=== PATIENT | male | born 1960 | race Caucasian/White ===

== ENCOUNTER → 2016-10-12 | Outpatient (CLI) | payer BC ==
[2015-12-30 20:20] VITALS: BP 117/79
[~2016-10-12] MED LIST: ACET500T33 PO; ASPI325T4 PO; BUTA1CAP29 PO; CYCL10TA2 PO; IPRA4AER IH; LEVO750T31 PO; Nicotine TD; TIOT18CA IH
== END | disposition home or self-care (01) ==
LOC: PF 11:13
PROVIDERS: ATTEND Internal Medicine Critical Care Medicine
DX: R06.02 Shortness of breath (principal)
CPT/HCPCS: 94060; 94729

== ENCOUNTER → 2016-10-13 | Outpatient (CLI) | payer BC ==
[2015-12-30 20:20] VITALS: BP 117/79
--- NOTE | 2016-10-13 11:32 | RAD ---
Indication cough. PA and lateral views of the chest were obtained. Comparison is made to an exam 06/25/2015. Note is made of the CT examination of the chest 04/09/2016. Postoperative changes are noted. Heart size and pulmonary vessels are within normal limits. A focal infiltrate is not seen. Significant pleural fluid is not present. There are some degenerative changes in the thoracic spine. IMPRESSION:: No acute or focal process is seen in the chest
== END | disposition home or self-care (01) ==
LOC: RAD 11:04
PROVIDERS: ATTEND Internal Medicine Critical Care Medicine
DX: R05 Cough (principal)
CPT/HCPCS: 71020

== ENCOUNTER 2017-02-26 21:53 | Inpatient (IN) | payer BC ==
[~2017-02-26] VITALS: Ht 188 cm; Wt 84.9 kg
[~2017-02-26 21:53] MED LIST changes: -ASPI325T4 PO; +ASPI325T8 PO
[2017-02-26 22:15] LABS: BASO # 0.1 x10^3/uL (0.0-0.2); BASO % 1 % (0-3); EOS % 4 % (0-3); HEMATOCRIT 45.7 % (39.0-53.0); HEMOGLOBIN 15.3 g/dL (13.0-17.5); LYMPH # 3.4 x10^3/uL (1.0-4.8); LYMPH % 34 % (24-48); MEAN CORPUSCULAR HEMOGLOBIN 31 pg (25-35); MEAN CORPUSCULAR HGB CONC 33 g/dL (31-37); MEAN CORPUSCULAR VOLUME 92 fL (79-100); MONO % 7 % (0-9); NEUT % 54 % (31-73); PLATELET COUNT 348 x10^3/uL (140-400); RED BLOOD COUNT 4.97 x10^6/uL (4.30-5.70); RED CELL DISTRIBUTION WIDTH 13.7 % (11.5-14.5); WHITE BLOOD COUNT 10.2 x10^3/uL (4.0-11.0)
[2017-02-26] MEDS ORDERED: ONDANSETRON PF 4 MG/2 ML VIAL. IV ONE (22:15)
[2017-02-26] MEDS ORDERED: IV NORMAL SALINE 1000ML BAG 1,000 ML IV SCH ×2 (22:15→23:45)
[2017-02-26] MEDS ORDERED: NITROGLYCERIN SUBLINGUAL 0.4 MG BOTTLE OF 25. SL PRN (22:15)
--- NOTE | 2017-02-26 22:24 | PHYS DOC ---
Past Medical History Past Medical History: CAD, COPD Past Surgical History: Coronary Bypass Surgery Alcohol Use: None Drug Use: None Adult General Chief Complaint Chief Complaint: CHEST PAIN HPI HPI Patient is a 56 year old male who presents with complaint of chest pain. Patient states his symptoms started suddenly tonight approximately 1 hour prior to arrival. Patient states that he started having severe substernal chest pain which he describes as pressure. Patient states "it feels like someone sitting on my chest." Patient has history of coronary artery disease status post bypass surgery done in 2006. 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 Patient states he took a full strength aspirin upon onset of symptoms but has not taken anything else for his symptoms. On my evaluation, patient rates his pain as 9 out of 10. Patient states that he has associated nausea and shortness of breath with symptoms. Patient denies fevers. Patient states that the pain radiates towards his left shoulder. Review of Systems Review of Systems Constitutional: Denies fever or chills [] Eyes: Denies change in visual acuity, redness, or eye pain [] HENT: Denies nasal congestion or sore throat [] Respiratory: Shortness of breath[] Cardiovascular: Chest pain[] GI: Nausea, denies abdominal pain, vomiting, bloody stools or diarrhea [] : Denies dysuria or hematuria [] Musculoskeletal: Denies back pain or joint pain [] Integument: Denies rash or skin lesions [] Neurologic: Denies headache, focal weakness or sensory changes [] Current Medications Current Medications Current Medications Medications (Trade) Dose Ordered Sig/Camille Start Time Stop Time Status Last Admin Dose Admin Fentanyl Citrate (Fentanyl 2ml Vial) 50 mcg PRN Q15MIN PRN 02/26/17 22:15 02/27/17 22:14 Heparin Sodium (Porcine) (Heparin Sodium) 2,200 unit PRN Q6HRS PRN 02/26/17 22:30 Heparin Sodium/ Dextrose 500 ml @ 0 mls/hr CONT PRN 02/26/17 22:30 Nitroglycerin (Nitrostat) 0.4 mg PRN Q5MIN PRN 02/26/17 22:15 02/27/17 22:14 Ondansetron HCl (Zofran) 4 mg 1X ONCE 02/26/17 22:15 02/26/17 22:16 DC Sodium Chloride 1,000 ml @ 100 mls/hr Q10H 02/26/17 22:15 02/27/17 08:14 Allergies Allergies Allergies Coded Allergies Type Severity Reaction Last Updated Verified No Known Drug Allergies 02/21/15 No Physical Exam Physical Exam Constitutional: Alert, afebrile, appears in moderate to severe discomfort. [] HENT: Normocephalic, atraumatic, bilateral external ears normal, oropharynx moist, no oral exudates, nose normal. [] Eyes: PERRLA, EOMI, conjunctiva normal, no discharge. [] Neck: Normal range of motion, no tenderness, supple, no stridor. [] Cardiovascular:Heart rate regular rhythm, no murmur [] Lungs & Thorax: Mildly restricted air movement bilaterally, no wheezes, no rales [] Abdomen: Bowel sounds normal, soft, no tenderness, no masses, no pulsatile masses. [] Skin: Warm, dry, no erythema, no rash. [] Back: No tenderness, no CVA tenderness. [] Extremities: No tenderness, no cyanosis, no clubbing, ROM intact, no edema. [] Neurologic: Alert and oriented X 3, normal motor function, normal sensory function, no focal deficits noted. [] Current Patient Data Vital Signs Vital Signs Date Time Temp Pulse Resp B/P (MAP) Pulse Ox O2 Delivery O2 Flow Rate FiO2 02/26/17 21:55 98.0 86 22 137/74 (95) 94 Room Air 98.0 Lab Values Laboratory Tests Test 02/26/17 22:00 02/26/17 22:04 White Blood Count 10.2 x10^3/uL (4.0-11.0) Red Blood Count 4.97 x10^6/uL (4.30-5.70) Hemoglobin 15.3 g/dL (13.0-17.5) Hematocrit 45.7 % (39.0-53.0) Mean Corpuscular Volume 92 fL (79-100) Mean Corpuscular Hemoglobin 31 pg (25-35) Mean Corpuscular Hemoglobin Concent 33 g/dL (31-37) Red Cell Distribution Width 13.7 % (11.5-14.5) Platelet Count 348 x10^3/uL (140-400) Neutrophils (%) (Auto) 54 % (31-73) Lymphocytes (%) (Auto) 34 % (24-48) Monocytes (%) (Auto) 7 % (0-9) Eosinophils (%) (Auto) 4 % (0-3) H Basophils (%) (Auto) 1 % (0-3) Neutrophils # (Auto) 5.5 x10^3uL (1.8-7.7) Lymphocytes # (Auto) 3.4 x10^3/uL (1.0-4.8) Monocytes # (Auto) 0.7 x10^3/uL (0.0-1.1) Eosinophils # (Auto) 0.4 x10^3/uL (0.0-0.7) Basophils # (Auto) 0.1 x10^3/uL (0.0-0.2) Sodium Level 141 mmol/L (136-145) Potassium Level 3.6 mmol/L (3.5-5.1) Chloride Level 104 mmol/L (98-107) Carbon Dioxide Level 25 mmol/L (21-32) Anion Gap 12 (6-14) Blood Urea Nitrogen 13 mg/dL (8-26) Creatinine 1.2 mg/dL (0.7-1.3) Estimated GFR (Cockcroft-Gault) 62.2 BUN/Creatinine Ratio 11 (6-20) Glucose Level 102 mg/dL (70-99) H Calcium Level 9.5 mg/dL (8.5-10.1) Magnesium Level 2.2 mg/dL (1.8-2.4) Total Bilirubin 0.2 mg/dL (0.2-1.0) Aspartate Amino Transferase (AST) 25 U/L (15-37) Alanine Aminotransferase (ALT) 30 U/L (16-63) Alkaline Phosphatase 89 U/L (46-116) Creatine Kinase 238 U/L (39-308) Creatine Kinase MB (Mass) 14.7 ng/mL (0.0-3.6) H Creatine Kinase MB Relative Index 6.2 % (0-4) H Troponin I Quantitative 2.026 ng/mL (0.000-0.055) LJ-Uzh-A-Type Natriuretic Peptide 167 pg/mL (0-124) H Total Protein 6.7 g/dL (6.4-8.2) Albumin 3.6 g/dL (3.4-5.0) Albumin/Globulin Ratio 1.2 (1.0-1.7) POC Troponin I 0.88 ng/ml (<0.08) Laboratory Tests 02/26/17 22:00 Laboratory Tests 02/26/17 22:00 EKG EKG Interpreted by me: Heart rate 85, sinus rhythm, PVC present, left axis deviation , no acute ST elevations or depressions[] Radiology/Procedures Radiology/Procedures One view AP chest x-ray interpreted by me: No infiltrate, no effusions, normal cardiac silhouette[] Course & Med Decision Making Course & Med Decision Making Pertinent Labs and Imaging studies reviewed. (See chart for details) HEART score is 6. Patient's initial troponin significantly elevated. Findings concerning for NSTEMI. Patient started on IV heparin per cardiovascular protocol. Patient was not given aspirin as he took a full strength aspirin upon onset of symptoms. Spoke with Dr. Arreola of cardiology who agreed with initial measures and will follow with patient in hospital. I spoke with Dr. Shine who accepted care patient in hospital. Critical care time excluding procedures: 30 minutes Dragon Disclaimer Dragon Disclaimer This electronic medical record was generated, in whole or in part, using a voice recognition dictation system. Departure Departure Impression: Primary Impression: NSTEMI (non-ST elevated myocardial infarction) Disposition: ADMITTED INPATIENT Admitting Physician: Chris Shine Condition: GUARDED Referrals: PATIENCE BYERS MD (PCP) AVEL HINOJOSA MD Feb 26, 2017 22:24
[2017-02-26] MEDS ORDERED: HEPARIN for IV BOLUS 10,000 UNIT/10 ML VIAL. IV ONE (22:30)
[2017-02-26] MEDS ORDERED: HEPARIN for IV BOLUS 10,000 UNIT/10 ML VIAL. IV PRN (22:30)
[2017-02-26 22:42] LABS: ALBUMIN 3.6 g/dL (3.4-5.0); ALBUMIN/GLOBULIN RATIO 1.2 (1.0-1.7); CALCIUM 9.5 mg/dL (8.5-10.1); CREATININE 1.2 mg/dL (0.7-1.3); GFR 62.2; POTASSIUM 3.6 mmol/L (3.5-5.1); TOTAL BILIRUBIN 0.2 mg/dL (0.2-1.0); TOTAL PROTEIN 6.7 g/dL (6.4-8.2)
[2017-02-26 22:44] LABS: CKMB MASS 14.7 ng/mL (0.0-3.6)
[2017-02-26] MEDS: HEPARIN 25,000UTS/500ML PREMIX 500 ML IV PRN (22:57)
[2017-02-26 23:30] VITALS: BP 123/70
[2017-02-26] MEDS ORDERED: ONDANSETRON PF 4 MG/2 ML VIAL. IV PRN (23:45)
[2017-02-26] MEDS ORDERED: fentaNYL PF VIAL 100 MCG/2 ML VIAL IV PRN (23:45)
[2017-02-26] MEDS ORDERED: ACETAMINOPHEN 325 MG TABLET. PO PRN (23:45)
[2017-02-27] VITALS (21 sets, daily range): BP systolic 108–149; BP diastolic 73–91
[2017-02-27] MEDS: fentaNYL PF VIAL 100 MCG/2 ML VIAL IV PRN ×2 (00:10→03:59)
[2017-02-27] MEDS ORDERED: ATOR10TA PO (02:38)
[2017-02-27] MEDS ORDERED: PROAIR HFA8.5 GM INH (02:38)
[2017-02-27] MEDS ORDERED: BUDE10.2 IH (02:38)
[2017-02-27 04:54] LABS: BASO # 0.1 x10^3/uL (0.0-0.2); BASO % 1 % (0-3); EOS % 5 % (0-3); HEMATOCRIT 42.5 % (39.0-53.0); HEMOGLOBIN 14.4 g/dL (13.0-17.5); LYMPH # 3.1 x10^3/uL (1.0-4.8); LYMPH % 30 % (24-48); MEAN CORPUSCULAR HEMOGLOBIN 31 pg (25-35); MEAN CORPUSCULAR HGB CONC 34 g/dL (31-37); MEAN CORPUSCULAR VOLUME 92 fL (79-100); MONO % 6 % (0-9); NEUT % 58 % (31-73); PLATELET COUNT 300 x10^3/uL (140-400); RED CELL DISTRIBUTION WIDTH 14.1 % (11.5-14.5); WHITE BLOOD COUNT 10.5 x10^3/uL (4.0-11.0)
[2017-02-27 05:07] LABS: CALCIUM 8.9 mg/dL (8.5-10.1); GFR 76.7; POTASSIUM 3.8 mmol/L (3.5-5.1)
[2017-02-27 06:06] LABS: CHOLESTEROL/HDL RATIO 5.2
[2017-02-27] MEDS ORDERED: NITROGLYCERIN PREMIX 250 ML IV ONE (07:15)
[2017-02-27] MEDS ORDERED: CLOPIDOGREL BISULFATE 75 MG TABLET PO ONE (07:15)
--- NOTE | 2017-02-27 07:39 | CONS ---
DATE OF CONSULTATION: 02/27/2017 REASON FOR CONSULTATION: Non-STEMI. HISTORY OF PRESENT ILLNESS: The patient is a pleasant 56-year-old male with past medical history as noted below, who presents to the hospital in the setting of chest pain. He was apparently in his usual state of health and at baseline is able to ambulate and do activities around the house without any significant limitations. He began to notice some chest pain yesterday evening, which prompted arrival to the ER. His initial troponin was elevated at 2 and he was started on appropriate therapy including aspirin and heparin drip. Since admission to the hospital, he has had intermittent chest pain, requiring nitroglycerin therapy at times. He has continued to have a minimally elevated troponin. PAST MEDICAL HISTORY: 1. Coronary artery disease, status post 5-vessel bypass several years ago. 2. Tobacco abuse. 3. COPD. SOCIAL HISTORY: The patient reports 2-pack per day history of tobacco abuse. Denies any alcohol or illicit drug use. 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 FAMILY HISTORY: Noncontributory. ALLERGIES: No known drug allergies. CURRENT CARDIOVASCULAR MEDICATIONS: Include: 1. Aspirin. 2. Plavix. 3. Heparin drip. 4. Atorvastatin. REVIEW OF SYSTEMS: Negative for 10 out of 14 systems reviewed, unless otherwise mentioned above in HPI. PHYSICAL EXAMINATION: VITAL SIGNS: Afebrile, heart rate 74, respiratory rate 20, blood pressure 123/87, 94% on room air. GENERAL: He is alert and oriented, in no acute distress. HEAD AND NECK: Unremarkable. HEART: Regular rate and rhythm without any significant murmurs, rubs or gallops. LUNGS: Notable for bilateral rhonchi. ABDOMEN: Soft, nontender, nondistended. EXTREMITIES: No clubbing, cyanosis or edema. 2+ radial and dorsalis pedis pulses. NEUROLOGIC: No focal deficits. MUSCULOSKELETAL: No trauma. PSYCHIATRIC: Normal mood and affect. DIAGNOSTIC TESTING: CBC is within normal limits. Basic metabolic within normal limits. Troponin elevated at 2.095. LDL elevated at 145, HDL 40. Chest x-ray is notable for bilateral mild pulmonary vascular congestion. EKG is unavailable for review at this time, but based upon ER notes, it appears to represent sinus rhythm without any significant ST or T-wave changes. IMPRESSION: Non-ST elevation myocardial infarction in a patient with prior history of coronary artery disease and tobacco abuse. RECOMMENDATIONS: We will plan for coronary angiogram in light of his chest pain and elevated biomarkers. Initiate the patient on Plavix. Blood pressure and heart rate well controlled at this time. Thank you for this consultation. LUCIO CHEN MD DR: PIERRE/augustin JOB#: [id number] / [id number]
[2017-02-27] MEDS: ASPIRIN ENTERIC COATED 81 MG TABLET.DR. PO SCH (07:44)
[2017-02-27] MEDS: ATORVASTATIN CALCIUM 40 MG TABLET. PO SCH ×2 (07:44→21:03)
--- NOTE | 2017-02-27 10:38 | RAD ---
Portable chest, 02/26/2017: History: Left-sided chest pain Comparison is made to a study from 10/13/2016. There has been a previous median sternotomy. The heart size is normal. There are mild scattered parenchymal scars. The depth of inspiration is not as good as on the prior exam. No acute infiltrate is seen. There is no evidence of pleural fluid or pneumothorax. IMPRESSION: No acute cardiopulmonary abnormality is detected.
--- NOTE | 2017-02-27 12:24 | EKG ---
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
--- NOTE | 2017-02-27 12:47 | EKG ---
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
--- NOTE | 2017-02-27 14:26 | PDOC1 ---
History and Physical Date of Admission Date of Admission 02/26/17 Identification/Chief Complaint Chief Complaint chest pain Problems: Source Source: Chart review, Patient History of Present Illness History of Present Illness HPI HPI Patient is a 56 year old male who presents with complaint of chest pain yesterday. pt got CABG x5 2006. he was doing ok till yesterday, when he was sitting, he felt substernal chest pain, heavy, 9/10, with N/V, sob, no diaphoresis, radiating to left shoulder. ER Troponin high. denies fever, chills, cough, diarrhea. still smoking, compliant with meds. requries both heparin and nitro drip overnight, now still chest pain 12/30 Past Medical History Cardiovascular: CAD, HTN Pulmonary: COPD Past Surgical History Past Surgical History: CABG Family History Family History: Hypertension Social History Smoke: <1 pack per day ALCOHOL: social Drugs: None Current Problem List Problem List Problems Medical Problems: (1) NSTEMI (non-ST elevated myocardial infarction) Status: Acute Current Medications Current Medications Current Medications Medications (Trade) Dose Ordered Sig/Camille Start Time Stop Time Status Last Admin Dose Admin Acetaminophen (Tylenol) 650 mg PRN Q4HRS PRN 02/26/17 23:45 02/27/17 23:44 02/27/17 09:38 650 MG Aspirin (Ecotrin) 81 mg DAILYWBKFT 02/27/17 08:00 02/27/17 07:44 81 MG Atorvastatin Calcium (Lipitor) 40 mg QHS 02/27/17 07:15 02/27/17 07:44 40 MG Clopidogrel Bisulfate (Plavix) 75 mg DAILYWBKFT 02/28/17 08:00 Fentanyl Citrate (Fentanyl 2ml Vial) 50 mcg PRN Q2HR PRN 02/26/17 23:45 02/27/17 23:44 Heparin Sodium (Porcine) (Heparin Sodium) 2,200 unit PRN Q6HRS PRN 02/26/17 22:30 02/27/17 12:59 2,200 UNIT Heparin Sodium/ Dextrose 500 ml @ 0 mls/hr CONT PRN 02/26/17 22:30 02/26/17 22:57 0 MLS/HR Nitroglycerin (Nitrostat) 0.4 mg PRN Q5MIN PRN 02/26/17 22:15 02/27/17 22:14 02/26/17 23:02 0.4 MG Nitroglycerin/ Dextrose 250 ml @ 0 mls/hr 1X ONCE 02/27/17 07:15 02/27/17 07:16 DC 02/27/17 07:45 0 MLS/HR Ondansetron HCl (Zofran) 4 mg PRN Q8HRS PRN 02/26/17 23:45 02/27/17 23:44 Sodium Chloride 1,000 ml @ 100 mls/hr Q10H 02/26/17 23:45 02/26/17 23:59 DC Allergies Allergies Allergies Coded Allergies Type Severity Reaction Last Updated Verified No Known Drug Allergies 02/21/15 No ROS Review of System CONSTITUTIONAL: No fever or chills EYES: No recent changes SKIN: No rash or itching CARDIOVASCULAR: No chest pain, syncope, palpitations, or edema RESPIRATORY: No SOB or cough GASTROINTESTINAL: No nausea, vomiting or abdominal pain NEUROLOGICAL: No headaches or weakness ENDOCRINE: No cold or heat intolerance GENITOURINARY: No urgency or frequency of urination MUSCULOSKELETAL: No back pain or joint pain LYMPHATICS: No enlarged lymph nodes PSYCHIATRIC: No anxiety or depression Physical Exam Physical Exam GEN.: No apparent distress. Alert and oriented. HEENT: Head is normocephalic, atraumatic NECK: Supple. LUNGS: Clear to auscultation. middle chest wall tenderness HEART: RRR, S1, S2 present. Peripheral pulses intact ABDOMEN: Soft, nontender. Positive bowel sounds. EXTREMITIES: Without any cyanosis. NEUROLOGIC: Normal speech, normal tone PSYCHIATRIC: Normal affect, normal mood. SKIN: No ulcerations Vitals Vitals Vital Signs Date Time Temp Pulse Resp B/P (MAP) Pulse Ox O2 Delivery O2 Flow Rate FiO2 02/27/17 10:56 85 18 131/85 (100) 94 Room Air 02/27/17 07:00 98.0 98.0 Labs Labs Laboratory Tests Test 02/26/17 22:00 02/26/17 22:04 02/27/17 04:30 02/27/17 05:58 White Blood Count 10.2 x10^3/uL (4.0-11.0) 10.5 x10^3/uL (4.0-11.0) Red Blood Count 4.97 x10^6/uL (4.30-5.70) 4.60 x10^6/uL (4.30-5.70) Hemoglobin 15.3 g/dL (13.0-17.5) 14.4 g/dL (13.0-17.5) Hematocrit 45.7 % (39.0-53.0) 42.5 % (39.0-53.0) Mean Corpuscular Volume 92 fL (79-100) 92 fL (79-100) Mean Corpuscular Hemoglobin 31 pg (25-35) 31 pg (25-35) Mean Corpuscular Hemoglobin Concent 33 g/dL (31-37) 34 g/dL (31-37) Red Cell Distribution Width 13.7 % (11.5-14.5) 14.1 % (11.5-14.5) Platelet Count 348 x10^3/uL (140-400) 300 x10^3/uL (140-400) Neutrophils (%) (Auto) 54 % (31-73) 58 % (31-73) Lymphocytes (%) (Auto) 34 % (24-48) 30 % (24-48) Monocytes (%) (Auto) 7 % (0-9) 6 % (0-9) Eosinophils (%) (Auto) 4 % (0-3) 5 % (0-3) Basophils (%) (Auto) 1 % (0-3) 1 % (0-3) Neutrophils # (Auto) 5.5 x10^3uL (1.8-7.7) 6.1 x10^3uL (1.8-7.7) Lymphocytes # (Auto) 3.4 x10^3/uL (1.0-4.8) 3.1 x10^3/uL (1.0-4.8) Monocytes # (Auto) 0.7 x10^3/uL (0.0-1.1) 0.6 x10^3/uL (0.0-1.1) Eosinophils # (Auto) 0.4 x10^3/uL (0.0-0.7) 0.5 x10^3/uL (0.0-0.7) Basophils # (Auto) 0.1 x10^3/uL (0.0-0.2) 0.1 x10^3/uL (0.0-0.2) Sodium Level 141 mmol/L (136-145) 140 mmol/L (136-145) Potassium Level 3.6 mmol/L (3.5-5.1) 3.8 mmol/L (3.5-5.1) Chloride Level 104 mmol/L (98-107) 106 mmol/L (98-107) Carbon Dioxide Level 25 mmol/L (21-32) 24 mmol/L (21-32) Anion Gap 12 (6-14) 10 (6-14) Blood Urea Nitrogen 13 mg/dL (8-26) 10 mg/dL (8-26) Creatinine 1.2 mg/dL (0.7-1.3) 1.0 mg/dL (0.7-1.3) Estimated GFR (Cockcroft-Gault) 62.2 76.7 BUN/Creatinine Ratio 11 (6-20) Glucose Level 102 mg/dL (70-99) 91 mg/dL (70-99) Calcium Level 9.5 mg/dL (8.5-10.1) 8.9 mg/dL (8.5-10.1) Magnesium Level 2.2 mg/dL (1.8-2.4) Total Bilirubin 0.2 mg/dL (0.2-1.0) Aspartate Amino Transf (AST/SGOT) 25 U/L (15-37) Alanine Aminotransferase (ALT/SGPT) 30 U/L (16-63) Alkaline Phosphatase 89 U/L (46-116) Creatine Kinase 238 U/L (39-308) Creatine Kinase MB (Mass) 14.7 ng/mL (0.0-3.6) Creatine Kinase MB Relative Index 6.2 % (0-4) Troponin I Quantitative 2.026 ng/mL (0.000-0.055) 2.095 ng/mL (0.000-0.055) SJ-Hmg-U-Type Natriuretic Peptide 167 pg/mL (0-124) Total Protein 6.7 g/dL (6.4-8.2) Albumin 3.6 g/dL (3.4-5.0) Albumin/Globulin Ratio 1.2 (1.0-1.7) Bedside Troponin I 0.88 ng/ml (<0.08) Triglycerides Level 119 mg/dL (0-150) Cholesterol Level 209 mg/dL (0-200) LDL Cholesterol, Calculated 145 mg/dL (0-100) VLDL Cholesterol, Calculated 24 mg/dL (0-40) Non-HDL Cholesterol Calculated 169 mg/dL (0-129) HDL Cholesterol 40 mg/dL (40-60) Cholesterol/HDL Ratio 5.2 Heparin Anti-Xa Act, Unfractionated 0.32 IU/mL (0.30-0.70) Test 02/27/17 11:45 Heparin Anti-Xa Act, Unfractionated 0.16 IU/mL (0.30-0.70) Troponin I Quantitative 3.725 ng/mL (0.000-0.055) Laboratory Tests Test 02/26/17 22:00 02/26/17 22:04 02/27/17 04:30 02/27/17 05:58 White Blood Count 10.2 x10^3/uL (4.0-11.0) 10.5 x10^3/uL (4.0-11.0) Red Blood Count 4.97 x10^6/uL (4.30-5.70) 4.60 x10^6/uL (4.30-5.70) Hemoglobin 15.3 g/dL (13.0-17.5) 14.4 g/dL (13.0-17.5) Hematocrit 45.7 % (39.0-53.0) 42.5 % (39.0-53.0) Mean Corpuscular Volume 92 fL (79-100) 92 fL (79-100) Mean Corpuscular Hemoglobin 31 pg (25-35) 31 pg (25-35) Mean Corpuscular Hemoglobin Concent 33 g/dL (31-37) 34 g/dL (31-37) Red Cell Distribution Width 13.7 % (11.5-14.5) 14.1 % (11.5-14.5) Platelet Count 348 x10^3/uL (140-400) 300 x10^3/uL (140-400) Neutrophils (%) (Auto) 54 % (31-73) 58 % (31-73) Lymphocytes (%) (Auto) 34 % (24-48) 30 % (24-48) Monocytes (%) (Auto) 7 % (0-9) 6 % (0-9) Eosinophils (%) (Auto) 4 % (0-3) 5 % (0-3) Basophils (%) (Auto) 1 % (0-3) 1 % (0-3) Neutrophils # (Auto) 5.5 x10^3uL (1.8-7.7) 6.1 x10^3uL (1.8-7.7) Lymphocytes # (Auto) 3.4 x10^3/uL (1.0-4.8) 3.1 x10^3/uL (1.0-4.8) Monocytes # (Auto) 0.7 x10^3/uL (0.0-1.1) 0.6 x10^3/uL (0.0-1.1) Eosinophils # (Auto) 0.4 x10^3/uL (0.0-0.7) 0.5 x10^3/uL (0.0-0.7) Basophils # (Auto) 0.1 x10^3/uL (0.0-0.2) 0.1 x10^3/uL (0.0-0.2) Sodium Level 141 mmol/L (136-145) 140 mmol/L (136-145) Potassium Level 3.6 mmol/L (3.5-5.1) 3.8 mmol/L (3.5-5.1) Chloride Level 104 mmol/L (98-107) 106 mmol/L (98-107) Carbon Dioxide Level 25 mmol/L (21-32) 24 mmol/L (21-32) Anion Gap 12 (6-14) 10 (6-14) Blood Urea Nitrogen 13 mg/dL (8-26) 10 mg/dL (8-26) Creatinine 1.2 mg/dL (0.7-1.3) 1.0 mg/dL (0.7-1.3) Estimated GFR (Cockcroft-Gault) 62.2 76.7 BUN/Creatinine Ratio 11 (6-20) Glucose Level 102 mg/dL (70-99) 91 mg/dL (70-99) Calcium Level 9.5 mg/dL (8.5-10.1) 8.9 mg/dL (8.5-10.1) Magnesium Level 2.2 mg/dL (1.8-2.4) Total Bilirubin 0.2 mg/dL (0.2-1.0) Aspartate Amino Transf (AST/SGOT) 25 U/L (15-37) Alanine Aminotransferase (ALT/SGPT) 30 U/L (16-63) Alkaline Phosphatase 89 U/L (46-116) Creatine Kinase 238 U/L (39-308) Creatine Kinase MB (Mass) 14.7 ng/mL (0.0-3.6) Creatine Kinase MB Relative Index 6.2 % (0-4) Troponin I Quantitative 2.026 ng/mL (0.000-0.055) 2.095 ng/mL (0.000-0.055) OJ-Qhz-P-Type Natriuretic Peptide 167 pg/mL (0-124) Total Protein 6.7 g/dL (6.4-8.2) Albumin 3.6 g/dL (3.4-5.0) Albumin/Globulin Ratio 1.2 (1.0-1.7) Bedside Troponin I 0.88 ng/ml (<0.08) Triglycerides Level 119 mg/dL (0-150) Cholesterol Level 209 mg/dL (0-200) LDL Cholesterol, Calculated 145 mg/dL (0-100) VLDL Cholesterol, Calculated 24 mg/dL (0-40) Non-HDL Cholesterol Calculated 169 mg/dL (0-129) HDL Cholesterol 40 mg/dL (40-60) Cholesterol/HDL Ratio 5.2 Heparin Anti-Xa Act, Unfractionated 0.32 IU/mL (0.30-0.70) Test 02/27/17 11:45 Heparin Anti-Xa Act, Unfractionated 0.16 IU/mL (0.30-0.70) Troponin I Quantitative 3.725 ng/mL (0.000-0.055) VTE Prophylaxis Ordered VTE Prophylaxis Devices: No VTE Pharmacological Prophylaxi: No Assessment/Plan Assessment/Plan NSTEMI h/o CAD post CABG COPD TOBAccoism HLD plan: fu with card echo today high HLD, increase lipitor cont asa, plavix cath tmr on heparin drip, nitro drip for chest pain cycle CE admit 2 nights CYNDIE ORDAZ MD Feb 27, 2017 14:25
[2017-02-27] MEDS ORDERED: MORPHINE SULFATE 2 MG/ML DISP.SYRIN. IV PRN (14:30)
[2017-02-27] MEDS ORDERED: hydrALAZINE 20 MG/ML VIAL. IVP PRN (14:30)
[2017-02-27] MEDS ORDERED: DOCUSATE SODIUM 100 MG CAPSULE. PO PRN (14:30)
[2017-02-27] MEDS ORDERED: NON FORMULARY ITEM (Albuterol Sulfate (Proair Hfa Inhaler) 2 PUFF) INH PRN (14:30)
[2017-02-27] MEDS ORDERED: ONDANSETRON PF 4 MG/2 ML VIAL. IV PRN (14:30)
[2017-02-27] MEDS ORDERED: CYCLOBENZAPRINE 10 MG TABLET. PO PRN (14:30)
[2017-02-27] MEDS ORDERED: ALBUTEROL SULFATE 2.5 MG/3 ML NEBU. NEB PRN (15:00)
[2017-02-27] MEDS ORDERED: BUTALB/APAP/CAFEIN 50/325/40MG TABLET. PO PRN (15:00)
[2017-02-27] MEDS ORDERED: NICOTINE 21MG PATCH. TD PRN (15:00)
[2017-02-27] MEDS: traMADol 50 MG TABLET PO PRN ×2 (15:49→23:49)
[2017-02-27] MEDS ORDERED: NON FORMULARY ITEM (Ipratropium/Albuterol Sulfate (Combivent Respimat Inhal) 2 INH) IH SCH (17:00)
[2017-02-27] MEDS: guaiFENesin/CODEINE 100mg/10mg 5 ML LIQUID PO PRN (17:02)
[2017-02-27] MEDS: HEPARIN 25,000UTS/500ML PREMIX 500 ML IV PRN (19:25)
[2017-02-27] MEDS: IPRATRPIUM/ALBUTEROL 0.5/2.5MG 3 ML NEBU. NEB SCH (19:28)
[2017-02-27] MEDS: BUDESONIDE 0.5 MG/2 ML NEBU. NEB SCH (19:28)
[2017-02-27] MEDS ORDERED: NON FORMULARY ITEM (Budesonide/Formoterol Fumarate (Symbicort 160-4.5 Mcg Inhaler) 2 PUFF) IH SCH (21:00)
[2017-02-28] VITALS (14 sets, daily range): BP systolic 109–142; BP diastolic 74–96
[2017-02-28] MEDS: ACETAMINOPHEN 325 MG TABLET. PO PRN ×2 (03:46→19:25)
[2017-02-28] MEDS: guaiFENesin/CODEINE 100mg/10mg 5 ML LIQUID PO PRN ×2 (03:46→19:24)
[2017-02-28 04:42] LABS: BASO # 0.1 x10^3/uL (0.0-0.2); BASO % 1 % (0-3); EOS % 1 % (0-3); HEMATOCRIT 45.3 % (39.0-53.0); LYMPH # 2.7 x10^3/uL (1.0-4.8); LYMPH % 24 % (24-48); MEAN CORPUSCULAR HEMOGLOBIN 30 pg (25-35); MEAN CORPUSCULAR HGB CONC 33 g/dL (31-37); MEAN CORPUSCULAR VOLUME 92 fL (79-100); MONO % 8 % (0-9); NEUT % 65 % (31-73); PLATELET COUNT 320 x10^3/uL (140-400); RED BLOOD COUNT 4.95 x10^6/uL (4.30-5.70); RED CELL DISTRIBUTION WIDTH 13.7 % (11.5-14.5); WHITE BLOOD COUNT 11.1 x10^3/uL (4.0-11.0)
[2017-02-28 05:17] LABS: CALCIUM 9.6 mg/dL (8.5-10.1); GFR 76.7; POTASSIUM 3.7 mmol/L (3.5-5.1)
[2017-02-28] MEDS: BUDESONIDE 0.5 MG/2 ML NEBU. NEB SCH ×2 (08:03→20:14)
[2017-02-28] MEDS: IPRATRPIUM/ALBUTEROL 0.5/2.5MG 3 ML NEBU. NEB SCH ×4 (08:03→20:14)
[2017-02-28] MEDS: CLOPIDOGREL BISULFATE 75 MG TABLET PO SCH (08:31)
[2017-02-28] MEDS: ASPIRIN ENTERIC COATED 81 MG TABLET.DR. PO SCH (08:31)
[2017-02-28] MEDS ORDERED: ANTI-COAG MONITOR BY PHARMACY. MC PRN (08:45)
[2017-02-28] MEDS ORDERED: NON FORMULARY ITEM (Tiotropium Bromide (Spiriva) 2 INH) IH SCH (09:00)
[2017-02-28] MEDS ORDERED: LIDOCAINE 2% 20 ML VIAL. ONE (11:20)
[2017-02-28] MEDS ORDERED: fentaNYL PF VIAL 100 MCG/2 ML VIAL ONE (11:21)
[2017-02-28] MEDS ORDERED: MIDAZOLAM HCL/PF 2 MG/2 ML VIAL. ONE (11:21)
[2017-02-28] MEDS ORDERED: IOHEXOL 300 MG/ML 100ML VIAL. IART ONE (11:45)
[2017-02-28] MEDS ORDERED: fentaNYL PF VIAL 100 MCG/2 ML VIAL IV ONE (11:45)
[2017-02-28] MEDS ORDERED: MIDAZOLAM HCL/PF 2 MG/2 ML VIAL. IV ONE (11:45)
[2017-02-28] MEDS ORDERED: LIDOCAINE 2% 20 ML VIAL. IJ ONE (11:45)
[2017-02-28] MEDS ORDERED: HEPARIN for IV BOLUS 10,000 UNIT/10 ML VIAL. ONE (12:01)
[2017-02-28] MEDS ORDERED: HEPARIN for IV BOLUS 10,000 UNIT/10 ML VIAL. IV ONE (12:15)
--- NOTE | 2017-02-28 13:04 | CARD ---
APPROVED REPORT EXAM: LIMITED Two-dimensional echocardiogram. Other Information Quality : Average Rhythm : NSR INDICATION Non STEMI 2D DIMENSIONS IVSd1.5 (0.7-1.1cm)LVDd4.8 (3.9-5.9cm) PWd1.5 (0.7-1.1cm)LVDs3.7 (2.5-4.0cm) FS (%) 21.5 %SV46.2 ml LVEF(%)45.6 (>50%) LEFT VENTRICLE The left ventricle is normal size. There is mild concentric left ventricular hypertrophy. Left ventri ken systolic function is low normal. The Ejection Fraction is 50%. Septal motion consistent with post -operative state. GREAT VESSELS Not assessed PERICARDIAL EFFUSION There is no evidence of significant pericardial effusion. Critical Notification Critical Value: No <Conclusion> Left ventricle systolic function is low normal. The Ejection Fraction is 50%. Septal motion consistent with post-operative state. Limited echo for LV function only.
--- NOTE | 2017-02-28 15:04 | PDOC ---
PROGRESS NOTES Chief Complaint Chief Complaint NSTEMI h/o CAD post CABG COPD TOBAccoism HLD plan: fu with card echo done high HLD, increase lipitor cont asa, plavix cath today on heparin drip, nitro drip for chest pain cycle CE, high duoneb, albuterol prn History of Present Illness History of Present Illness ROS: NO fever, chills, sob or chest pain some cough with sob Vitals Vitals Vital Signs Date Time Temp Pulse Resp B/P (MAP) Pulse Ox O2 Delivery O2 Flow Rate FiO2 02/28/17 14:53 98.2 86 18 119/77 (91) 92 Room Air 98.2 02/28/17 13:56 3.0 Physical Exam General: Alert, Oriented X3, Cooperative Heart: Regular rate, Normal S1, Normal S2 Lungs: Clear, Other Abdomen: Normal bowel sounds, Soft Extremities: No clubbing, No cyanosis Skin: No rashes Labs LABS Laboratory Tests Test 02/27/17 17:25 02/27/17 23:30 02/28/17 04:35 Heparin Anti-Xa Act, Unfractionated 0.43 IU/mL (0.30-0.70) 0.40 IU/mL (0.30-0.70) White Blood Count 11.1 x10^3/uL (4.0-11.0) Red Blood Count 4.95 x10^6/uL (4.30-5.70) Hemoglobin 15.0 g/dL (13.0-17.5) Hematocrit 45.3 % (39.0-53.0) Mean Corpuscular Volume 92 fL (79-100) Mean Corpuscular Hemoglobin 30 pg (25-35) Mean Corpuscular Hemoglobin Concent 33 g/dL (31-37) Red Cell Distribution Width 13.7 % (11.5-14.5) Platelet Count 320 x10^3/uL (140-400) Neutrophils (%) (Auto) 65 % (31-73) Lymphocytes (%) (Auto) 24 % (24-48) Monocytes (%) (Auto) 8 % (0-9) Eosinophils (%) (Auto) 1 % (0-3) Basophils (%) (Auto) 1 % (0-3) Neutrophils # (Auto) 7.2 x10^3uL (1.8-7.7) Lymphocytes # (Auto) 2.7 x10^3/uL (1.0-4.8) Monocytes # (Auto) 0.9 x10^3/uL (0.0-1.1) Eosinophils # (Auto) 0.1 x10^3/uL (0.0-0.7) Basophils # (Auto) 0.1 x10^3/uL (0.0-0.2) Sodium Level 138 mmol/L (136-145) Potassium Level 3.7 mmol/L (3.5-5.1) Chloride Level 103 mmol/L (98-107) Carbon Dioxide Level 24 mmol/L (21-32) Anion Gap 11 (6-14) Blood Urea Nitrogen 10 mg/dL (8-26) Creatinine 1.0 mg/dL (0.7-1.3) Estimated GFR (Cockcroft-Gault) 76.7 Glucose Level 105 mg/dL (70-99) Calcium Level 9.6 mg/dL (8.5-10.1) Assessment and Plan Assessmemt and Plan Problems Medical Problems: (1) NSTEMI (non-ST elevated myocardial infarction) Status: Acute Problems: Comment Review of Relevant I have reviewed the following items ila (where applicable) has been applied. Labs Laboratory Tests Test 02/26/17 22:00 02/26/17 22:04 02/27/17 04:30 02/27/17 05:58 White Blood Count 10.2 x10^3/uL (4.0-11.0) 10.5 x10^3/uL (4.0-11.0) Red Blood Count 4.97 x10^6/uL (4.30-5.70) 4.60 x10^6/uL (4.30-5.70) Hemoglobin 15.3 g/dL (13.0-17.5) 14.4 g/dL (13.0-17.5) Hematocrit 45.7 % (39.0-53.0) 42.5 % (39.0-53.0) Mean Corpuscular Volume 92 fL (79-100) 92 fL (79-100) Mean Corpuscular Hemoglobin 31 pg (25-35) 31 pg (25-35) Mean Corpuscular Hemoglobin Concent 33 g/dL (31-37) 34 g/dL (31-37) Red Cell Distribution Width 13.7 % (11.5-14.5) 14.1 % (11.5-14.5) Platelet Count 348 x10^3/uL (140-400) 300 x10^3/uL (140-400) Neutrophils (%) (Auto) 54 % (31-73) 58 % (31-73) Lymphocytes (%) (Auto) 34 % (24-48) 30 % (24-48) Monocytes (%) (Auto) 7 % (0-9) 6 % (0-9) Eosinophils (%) (Auto) 4 % (0-3) 5 % (0-3) Basophils (%) (Auto) 1 % (0-3) 1 % (0-3) Neutrophils # (Auto) 5.5 x10^3uL (1.8-7.7) 6.1 x10^3uL (1.8-7.7) Lymphocytes # (Auto) 3.4 x10^3/uL (1.0-4.8) 3.1 x10^3/uL (1.0-4.8) Monocytes # (Auto) 0.7 x10^3/uL (0.0-1.1) 0.6 x10^3/uL (0.0-1.1) Eosinophils # (Auto) 0.4 x10^3/uL (0.0-0.7) 0.5 x10^3/uL (0.0-0.7) Basophils # (Auto) 0.1 x10^3/uL (0.0-0.2) 0.1 x10^3/uL (0.0-0.2) Sodium Level 141 mmol/L (136-145) 140 mmol/L (136-145) Potassium Level 3.6 mmol/L (3.5-5.1) 3.8 mmol/L (3.5-5.1) Chloride Level 104 mmol/L (98-107) 106 mmol/L (98-107) Carbon Dioxide Level 25 mmol/L (21-32) 24 mmol/L (21-32) Anion Gap 12 (6-14) 10 (6-14) Blood Urea Nitrogen 13 mg/dL (8-26) 10 mg/dL (8-26) Creatinine 1.2 mg/dL (0.7-1.3) 1.0 mg/dL (0.7-1.3) Estimated GFR (Cockcroft-Gault) 62.2 76.7 BUN/Creatinine Ratio 11 (6-20) Glucose Level 102 mg/dL (70-99) 91 mg/dL (70-99) Calcium Level 9.5 mg/dL (8.5-10.1) 8.9 mg/dL (8.5-10.1) Magnesium Level 2.2 mg/dL (1.8-2.4) Total Bilirubin 0.2 mg/dL (0.2-1.0) Aspartate Amino Transf (AST/SGOT) 25 U/L (15-37) Alanine Aminotransferase (ALT/SGPT) 30 U/L (16-63) Alkaline Phosphatase 89 U/L (46-116) Creatine Kinase 238 U/L (39-308) Creatine Kinase MB (Mass) 14.7 ng/mL (0.0-3.6) Creatine Kinase MB Relative Index 6.2 % (0-4) Troponin I Quantitative 2.026 ng/mL (0.000-0.055) 2.095 ng/mL (0.000-0.055) TN-Yyj-L-Type Natriuretic Peptide 167 pg/mL (0-124) Total Protein 6.7 g/dL (6.4-8.2) Albumin 3.6 g/dL (3.4-5.0) Albumin/Globulin Ratio 1.2 (1.0-1.7) Bedside Troponin I 0.88 ng/ml (<0.08) Triglycerides Level 119 mg/dL (0-150) Cholesterol Level 209 mg/dL (0-200) LDL Cholesterol, Calculated 145 mg/dL (0-100) VLDL Cholesterol, Calculated 24 mg/dL (0-40) Non-HDL Cholesterol Calculated 169 mg/dL (0-129) HDL Cholesterol 40 mg/dL (40-60) Cholesterol/HDL Ratio 5.2 Heparin Anti-Xa Act, Unfractionated 0.32 IU/mL (0.30-0.70) Test 02/27/17 11:45 02/27/17 17:25 02/27/17 23:30 02/28/17 04:35 Heparin Anti-Xa Act, Unfractionated 0.16 IU/mL (0.30-0.70) 0.43 IU/mL (0.30-0.70) 0.40 IU/mL (0.30-0.70) Troponin I Quantitative 3.725 ng/mL (0.000-0.055) White Blood Count 11.1 x10^3/uL (4.0-11.0) Red Blood Count 4.95 x10^6/uL (4.30-5.70) Hemoglobin 15.0 g/dL (13.0-17.5) Hematocrit 45.3 % (39.0-53.0) Mean Corpuscular Volume 92 fL (79-100) Mean Corpuscular Hemoglobin 30 pg (25-35) Mean Corpuscular Hemoglobin Concent 33 g/dL (31-37) Red Cell Distribution Width 13.7 % (11.5-14.5) Platelet Count 320 x10^3/uL (140-400) Neutrophils (%) (Auto) 65 % (31-73) Lymphocytes (%) (Auto) 24 % (24-48) Monocytes (%) (Auto) 8 % (0-9) Eosinophils (%) (Auto) 1 % (0-3) Basophils (%) (Auto) 1 % (0-3) Neutrophils # (Auto) 7.2 x10^3uL (1.8-7.7) Lymphocytes # (Auto) 2.7 x10^3/uL (1.0-4.8) Monocytes # (Auto) 0.9 x10^3/uL (0.0-1.1) Eosinophils # (Auto) 0.1 x10^3/uL (0.0-0.7) Basophils # (Auto) 0.1 x10^3/uL (0.0-0.2) Sodium Level 138 mmol/L (136-145) Potassium Level 3.7 mmol/L (3.5-5.1) Chloride Level 103 mmol/L (98-107) Carbon Dioxide Level 24 mmol/L (21-32) Anion Gap 11 (6-14) Blood Urea Nitrogen 10 mg/dL (8-26) Creatinine 1.0 mg/dL (0.7-1.3) Estimated GFR (Cockcroft-Gault) 76.7 Glucose Level 105 mg/dL (70-99) Calcium Level 9.6 mg/dL (8.5-10.1) Laboratory Tests Test 02/27/17 17:25 02/27/17 23:30 02/28/17 04:35 Heparin Anti-Xa Act, Unfractionated 0.43 IU/mL (0.30-0.70) 0.40 IU/mL (0.30-0.70) White Blood Count 11.1 x10^3/uL (4.0-11.0) Red Blood Count 4.95 x10^6/uL (4.30-5.70) Hemoglobin 15.0 g/dL (13.0-17.5) Hematocrit 45.3 % (39.0-53.0) Mean Corpuscular Volume 92 fL (79-100) Mean Corpuscular Hemoglobin 30 pg (25-35) Mean Corpuscular Hemoglobin Concent 33 g/dL (31-37) Red Cell Distribution Width 13.7 % (11.5-14.5) Platelet Count 320 x10^3/uL (140-400) Neutrophils (%) (Auto) 65 % (31-73) Lymphocytes (%) (Auto) 24 % (24-48) Monocytes (%) (Auto) 8 % (0-9) Eosinophils (%) (Auto) 1 % (0-3) Basophils (%) (Auto) 1 % (0-3) Neutrophils # (Auto) 7.2 x10^3uL (1.8-7.7) Lymphocytes # (Auto) 2.7 x10^3/uL (1.0-4.8) Monocytes # (Auto) 0.9 x10^3/uL (0.0-1.1) Eosinophils # (Auto) 0.1 x10^3/uL (0.0-0.7) Basophils # (Auto) 0.1 x10^3/uL (0.0-0.2) Sodium Level 138 mmol/L (136-145) Potassium Level 3.7 mmol/L (3.5-5.1) Chloride Level 103 mmol/L (98-107) Carbon Dioxide Level 24 mmol/L (21-32) Anion Gap 11 (6-14) Blood Urea Nitrogen 10 mg/dL (8-26) Creatinine 1.0 mg/dL (0.7-1.3) Estimated GFR (Cockcroft-Gault) 76.7 Glucose Level 105 mg/dL (70-99) Calcium Level 9.6 mg/dL (8.5-10.1) Medications Current Medications Nitroglycerin (Nitrostat) 0.4 mg PRN Q5MIN PRN SL CP RATING > 1/10 Last administered on 02/26/17 23:02; Start 02/26/17 at 22:15; Stop 02/27/17 at 22:14 ; Status DC Fentanyl Citrate (Fentanyl 2ml Vial) 50 mcg PRN Q15MIN PRN IV PAIN GREATER THAN 3/10 Last administered on 02/27/17 03:59; Start 02/26/17 at 22:15; Stop 02/27/17 at 12:17; Status DC Sodium Chloride 1,000 ml @ 100 mls/hr Q10H IV Last administered on 02/26/17 22:57; Start 02/26/17 at 22:15; Stop 02/27/17 at 08:14; Status DC Ondansetron HCl (Zofran) 4 mg 1X ONCE IV ; Start 02/26/17 at 22:15; Stop at 22:16; Status DC Heparin Sodium (Porcine) (Heparin Sodium) 4,000 unit 1X ONCE IV Last administered on 02/26/17 22:55; Start 02/26/17 at 22:30; Stop 02/26/17 at 22:31 ; Status DC Heparin Sodium/ Dextrose 500 ml @ 0 mls/hr CONT PRN IV SEE I/O RECORD Last administered on 02/27/17 19:25; Start 02/26/17 at 22:30 Heparin Sodium (Porcine) (Heparin Sodium) 2,200 unit PRN Q6HRS PRN IV FOR UFH LEVEL LESS THAN 0.2 Last administered on 02/27/17 12:59; Start 02/26/17 at 22: 30 Ondansetron HCl (Zofran) 4 mg PRN Q8HRS PRN IV NAUSEA/VOMITING; Start 02/26/17 at 23:45; Stop 02/27/17 at 23:44; Status DC Fentanyl Citrate (Fentanyl 2ml Vial) 50 mcg PRN Q2HR PRN IV PAIN; Start at 23:45; Stop 02/27/17 at 23:44; Status DC Sodium Chloride 1,000 ml @ 100 mls/hr Q10H IV ; Start 02/26/17 at 23:45; Stop 02/26/17 at 23:59; Status DC Acetaminophen (Tylenol) 650 mg PRN Q4HRS PRN PO FEVER Last administered on 02/27 09:38; Start 02/26/17 at 23:45; Stop 02/27/17 at 23:44; Status DC Aspirin (Ecotrin) 81 mg DAILYWBKFT PO Last administered on 02/28/17 08:31; Start 02/27/17 at 08:00 Atorvastatin Calcium (Lipitor) 40 mg QHS PO Last administered on 02/27/17 21: 03; Start 02/27/17 at 07:15 Clopidogrel Bisulfate (Plavix) 300 mg 1X ONCE PO Last administered on 07:44; Start 02/27/17 at 07:15; Stop 02/27/17 at 07:16; Status DC Clopidogrel Bisulfate (Plavix) 75 mg DAILYWBKFT PO Last administered on 08:31; Start 02/28/17 at 08:00 Nitroglycerin/ Dextrose 250 ml @ 0 mls/hr 1X ONCE IV Last administered on 02/27 07:45; Start 02/27/17 at 07:15; Stop 02/27/17 at 07:16; Status DC Cyclobenzaprine HCl (Flexeril) 10 mg PRN TID PRN PO MUSCLE PAIN; Start at 14:30 Non-Formulary Medication 2 puff PRN Q6HRS PRN INH SHORTNESS OF BREATH; Start 02/27/17 at 14:30; Status UNV Non-Formulary Medication 2 puff BID IH ; Start 02/27/17 at 21:00; Status UNV Acetaminophen/ Butalbital/ Caffeine (Fioricet) 1 tab PRN Q4HRS PRN PO MIGRAINE HEADACHE; Start 02/27/17 at 15:00 Non-Formulary Medication 2 inh QID IH ; Start 02/27/17 at 17:00; Status UNV Non-Formulary Medication 2 inh DAILY IH ; Start 02/28/17 at 09:00; Status UNV Nicotine (Nicoderm Cq 21mg) 1 patch PRN DAILY PRN TD Smoking Cessation; Start 02/27/17 at 15:00 Acetaminophen (Tylenol) 650 mg PRN Q6HRS PRN PO FEVER Last administered on 02/28 03:46; Start 02/27/17 at 14:30 Ondansetron HCl (Zofran) 4 mg PRN Q6HRS PRN IV NAUSEA/VOMITING; Start 02/27/17 at 14:30 Morphine Sulfate 2 mg PRN Q2HR PRN IV PAIN; Start 02/27/17 at 14:30 Tramadol HCl (Ultram) 50 mg PRN Q6HRS PRN PO PAIN Last administered on 23:49; Start 02/27/17 at 14:30 Hydralazine HCl (Apresoline) 10 mg PRN Q4HRS PRN IVP ELEVATED BP, SEE COMMENTS ; Start 02/27/17 at 14:30 Docusate Sodium (Colace) 100 mg PRN DAILY PRN PO CONSTIPATION; Start 02/27/17 at 14:30 Albuterol Sulfate (Ventolin Neb Soln) 2.5 mg PRN Q6HRS PRN NEB SHORTNESS OF BREATH; Start 02/27/17 at 15:00 Albuterol/ Ipratropium (Duoneb) 3 ml RTQID NEB Last administered on 02/28/17 08:03; Start 02/27/17 at 16:00 Budesonide (Pulmicort) 0.5 mg RTBID NEB Last administered on 02/28/17 08:03; Start 02/27/17 at 20:00 Guaifenesin/ Codeine Phosphate (Robitussin Ac) 5 ml PRN Q6HRS PRN PO COUGH Last administered on 02/28/17 03:46; Start 02/27/17 at 17:00 Info (Anti-Coagulation Monitoring By Pharmacy) 1 each PRN DAILY PRN MC SEE COMMENTS; Start 02/28/17 at 08:45 Heparin Sodium/ Sodium Chloride 1,000 ml @ As Directed STK-MED ONCE .ROUTE ; Start 02/28/17 at 11:19; Stop 02/28/17 at 11:20; Status DC Lidocaine HCl 20 ml STK-MED ONCE .ROUTE ; Start 02/28/17 at 11:20; Stop at 11:21; Status DC Midazolam HCl (Versed) 2 mg STK-MED ONCE .ROUTE ; Start 02/28/17 at 11:21; Stop 02/28/17 at 11:22; Status DC Fentanyl Citrate (Fentanyl 2ml Vial) 100 mcg STK-MED ONCE .ROUTE ; Start at 11:21; Stop 02/28/17 at 11:22; Status DC Heparin Sodium/ Sodium Chloride 1,000 unit 1X ONCE IART Last administered on 02/28/17 11:50; Start 02/28/17 at 11:45; Stop 02/28/17 at 11:46; Status DC Midazolam HCl (Versed) 2 mg 1X ONCE IV Last administered on 02/28/17 11:51; Start 02/28/17 at 11:45; Stop 02/28/17 at 11:46; Status DC Fentanyl Citrate (Fentanyl 2ml Vial) 100 mcg 1X ONCE IV Last administered on 02/28/17 11:51; Start 02/28/17 at 11:45; Stop 02/28/17 at 11:46; Status DC Iohexol (Omnipaque 300 Mg/ml) 100 ml 1X ONCE IART Last administered on 12:23; Start 02/28/17 at 11:45; Stop 02/28/17 at 11:46; Status DC Lidocaine HCl 20 ml 1X ONCE IJ Last administered on 02/28/17 11:50; Start at 11:45; Stop 02/28/17 at 11:46; Status DC Heparin Sodium (Porcine) (Heparin Sodium) 5,000 unit 1X ONCE IV Last administered on 02/28/17 12:23; Start 02/28/17 at 12:15; Stop 02/28/17 at 12:16 ; Status DC Heparin Sodium (Porcine) (Heparin Sodium) 10,000 unit STK-MED ONCE .ROUTE ; Start 02/28/17 at 12:01; Stop 02/28/17 at 12:04; Status DC Active Scripts Active Fioricet 50-300-40 Mg Capsule (Butalb/Acetaminophen/Caffeine) 1 Each Capsule 1 Each PO PRN Q4HRS PRN Cyclobenzaprine Hcl 10 Mg Tablet 1 Tab PO TID PRN [Nicotine] 1 PATCH Patch 1 Patch TD DAILY Levaquin (Levofloxacin) 750 Mg Tablet 1 Tab PO DAILY 7 Days Reported Proair Hfa Inhaler (Albuterol Sulfate) 8.5 Gm Hfa.aer.ad 2 Puff INH PRN Q6HRS PRN Symbicort 160-4.5 Mcg Inhaler (Budesonide/Formoterol Fumarate) 10.2 Gm Hfa.aer.ad 2 Puff IH BID Lipitor (Atorvastatin Calcium) 10 Mg Tablet 10 Mg PO HS Tylenol Extra Strength (Acetaminophen) 500 Mg Tablet 1,000 Mg PO PRN Q6HRS PRN Combivent Respimat Inhal (Ipratropium/Albuterol Sulfate) 4 Gm Aer.w.adap 2 Inh IH QID Spiriva (Tiotropium Medora) 18 Mcg Cap.w.dev 2 Inh IH DAILY Aspirin 325 Mg Tablet 325 Mg PO DAILY Vitals/I & O Vital Sign - Last 24 Hours 02/27/17 02/27/17 02/27/17 02/27/17 15:26 15:49 16:26 17:26 Pulse 87 85 88 Resp 18 22 18 18 B/P (MAP) 131/84 (100) 136/86 (103) 139/90 (106) Pulse Ox 94 94 94 91 O2 Delivery Room Air Room Air Room Air 02/27/17 02/27/17 02/27/17 02/27/17 19:29 19:31 19:50 20:00 Temp 98.0 98.0 Pulse 104 Resp 22 B/P (MAP) 136/91 (106) Pulse Ox 90 90 92 O2 Delivery Nasal Cannula Nasal Cannula Nasal Cannula Nasal Cannula O2 Flow Rate 2.0 2.0 2.0 2.0 02/27/17 02/27/17 02/28/17 02/28/17 23:30 23:49 00:49 03:35 Temp 98.4 97.5 98.4 97.5 Pulse 89 95 Resp 22 24 B/P (MAP) 149/87 (107) 142/96 (111) Pulse Ox 92 92 92 92 O2 Delivery Nasal Cannula Nasal Cannula Nasal Cannula Nasal Cannula O2 Flow Rate 2.0 2.0 2.0 2.0 02/28/17 02/28/17 02/28/17 02/28/17 07:00 08:00 08:04 10:00 Temp 98.2 98.2 Pulse 91 Resp 20 B/P (MAP) 116/86 (96) Pulse Ox 89 92 O2 Delivery Nasal Cannula Nasal Cannula Nasal Cannula Nasal Cannula O2 Flow Rate 2.0 2.0 2.0 2.0 02/28/17 02/28/17 02/28/17 02/28/17 11:51 12:12 12:48 13:15 Pulse 81 81 81 Resp 24 23 Pulse Ox 94 95 95 93 O2 Delivery Nasal Cannula Nasal Cannula Nasal Cannula Room Air O2 Flow Rate 3.0 3.0 3.0 02/28/17 02/28/17 02/28/17 02/28/17 13:56 14:10 14:32 14:53 Temp 98.2 98.2 Pulse 81 81 86 Resp 18 B/P (MAP) 119/77 (91) Pulse Ox 95 93 93 92 O2 Delivery Nasal Cannula Room Air Room Air Room Air O2 Flow Rate 3.0 CYNDIE ORDAZ MD Feb 28, 2017 15:04
[2017-02-28] MEDS ORDERED: ALBUTEROL SULFATE 2.5 MG/3 ML NEBU. NEB PRN (15:15)
[2017-02-28] MEDS: ATORVASTATIN CALCIUM 40 MG TABLET. PO SCH (20:34)
[2017-03-01] MEDS: traMADol 50 MG TABLET PO PRN (02:46)
[2017-03-01 03:35] VITALS: BP 111/74
[2017-03-01] MEDS: ACETAMINOPHEN 325 MG TABLET. PO PRN (03:43)
[2017-03-01 05:38] LABS: BASO # 0.1 x10^3/uL (0.0-0.2); BASO % 1 % (0-3); EOS % 3 % (0-3); HEMATOCRIT 45.4 % (39.0-53.0); HEMOGLOBIN 15.3 g/dL (13.0-17.5); LYMPH % 20 % (24-48); MEAN CORPUSCULAR HEMOGLOBIN 31 pg (25-35); MEAN CORPUSCULAR HGB CONC 34 g/dL (31-37); MEAN CORPUSCULAR VOLUME 91 fL (79-100); MONO % 9 % (0-9); NEUT % 68 % (31-73); PLATELET COUNT 297 x10^3/uL (140-400); RED BLOOD COUNT 4.96 x10^6/uL (4.30-5.70); RED CELL DISTRIBUTION WIDTH 13.7 % (11.5-14.5); WHITE BLOOD COUNT 10.1 x10^3/uL (4.0-11.0)
[2017-03-01 06:23] LABS: CALCIUM 8.9 mg/dL (8.5-10.1); CREATININE 1.1 mg/dL (0.7-1.3); GFR 68.8; POTASSIUM 3.8 mmol/L (3.5-5.1)
[2017-03-01 07:00] VITALS: BP 109/71
[2017-03-01] MEDS: IPRATRPIUM/ALBUTEROL 0.5/2.5MG 3 ML NEBU. NEB SCH ×3 (07:00→14:52)
[2017-03-01] MEDS: BUDESONIDE 0.5 MG/2 ML NEBU. NEB SCH (07:01)
[2017-03-01] MEDS: CLOPIDOGREL BISULFATE 75 MG TABLET PO SCH (07:46)
[2017-03-01] MEDS: ASPIRIN ENTERIC COATED 81 MG TABLET.DR. PO SCH (07:46)
[2017-03-01 11:00] VITALS: BP 107/69
--- NOTE | 2017-03-01 12:17 | CARD ---
APPROVED REPORT Procedure(s) performed: Left heart cath, Coronary angiography, Grafts, iFR LAD, IVUS LAD Moderate Sedation: 68 Minutes HISTORY The patient is a 56 year-old male with a history of : previous OK, previous CHF, chronic lung disease , previous PCI (The PCI date was ), hypertension, previous CABG (The CABG date was ), dyslipidemia. INDICATION The indication(s) include : non-STEMI Trop of 3. PROCEDURE NARRATIVE The patient was brought electively to the cardiac catheterization lab. A timeout was performed confi rming the patient's name, date of , procedure, and site of procedure. All necessary personnel w ere wearing the appropriate protective equipment and radiation monitor devices. After explaining the risks and benefits of the procedure and alternatives, informed consent was obtained. (See nursing no karine for medications administered). The right groin was sterilely prepped and draped in the usual fas hion. The right groin was infiltrated with 20 mL of 2% lidocaine for subcutaneous anesthesia. A 6 F sheath was inserted into the right femoral artery without difficulty via the modified seldinger tech nique with an 18G needle and a J-tipped guidewire. Right and left coronary angiography was obtained w ith a JR4 and JL4 catheter. Bypass angiography was performed with JR4, MPA1 and CARMINE catheters. HEMODYNAMICS: LVEDP 12 mm Hg AO: 170/79 *No gradient on LV to aortic pullback. CORONARY ANGIOGRAPHY: LM is a large caliber short vessel with a 20% distal tapering. LAD is a large caliber vessel with a 50% eccentric proximal stenosis. D1 or Ramus is ostially occluded, is a small caliber vessel (less than 2mm) and seen to fill via a ve in graft and appears to have a 50% distal stenosis. LCx is proximally occluded and a non-dominant vessel. OM1 is a small to moderate caliber vessel with that is ostially occluded. The distal vessel fills via a patent vein graft and has no significant disease. RCA is a large caliber dominant vessel with a proximal 100% occlusion. The RPDA and RPL are small mod erate caliber vessels seen to fill via separate vein grafts. The [place] RPDA and RPL have mild diffus e irregularities of up to 30%. BYPASS ANGIOGRAPHY: JAQUEZ to LAD: Proximally occluded. SVG to RPDA: Patent with mild diffuse irregularities in the body of the graft of up to 30% SVG to RPL: Patent with an ostial 30% stenosis, a mid segment of ectasia and likely eccentric 40-50% stenosis. SVG to Ramus/D1: Large ectatic calcified vessel with diffuse irregularities of up to 30% SVG to OM1: Proximal 40% stenosis followed by a mid 40-50% stenosis. INTERVENTIONAL TECHNIQUE: IVUS, iFR of the LAD Based on the various degrees of stenoses involving the [place] and vein graft vessels it was felt that there was no true culprit lesion to explain the troponin elevation. In light of the patient's worsen ing dyspnea and the proximal LAD stenosis with previously implanted CARMINE graft being occluded and furt her anatomic/physiologic assessment of the stenosis was performed. Heparin 5000 unit bolus was admini stered. Through a JL 5 guide catheter a 0.014 inch [facility] IFR wire was advanced past the LAD stenosi s after appropriate normalization. An IFR was measured to be 0.95. Subsequently a pro-water wire was placed after the FFR wire was removed and a [employer] IVUS catheter was advanced with measure ments performed of the LAD stenosis. No significant stenosis was identified by either assessment. The refore, further intervention was deferred in favor of medical therapy. The right femoral sheath was r emoved and hemostasis was achieved with manual compression. The patient tolerated the procedure well and there were no acute complications. Conclusion 1. Severe [place] three vessel coronary artery disease. 2. 4/5 grafts patent 3. Negative iFR and IVUS of the proximal LAD stenosis. Recommendations Aggressive Medical Therapy
[2017-03-01] MEDS ORDERED: predniSONE 20 MG TABLET PO SCH (13:00)
[2017-03-01] MEDS ORDERED: HEPARIN PF for SUB-Q USE 5,000 UNIT/0.5 ML VIAL. SQ SCH (14:00)
--- NOTE | 2017-03-01 14:58 | PDOC ---
PROGRESS NOTES Chief Complaint Chief Complaint NSTEMI s/p Cath wo PCI h/o CAD post CABG COPD acute hypoxic resp failure with copd TOBAccoism HLD plan: fu with card echo done, cath done high HLD, increase lipitor cont asa, plavix add prednisone, pulm consult on heparin drip, nitro drip for chest pain, all dced today cycle CE, high duoneb, albuterol prn dc tmr with 6min walk History of Present Illness History of Present Illness ROS: NO fever, chills, sob or chest pain some cough with sob on NC o2 2L, new to him Vitals Vitals Vital Signs Date Time Temp Pulse Resp B/P (MAP) Pulse Ox O2 Delivery O2 Flow Rate FiO2 03/01/17 14:53 Room Air 03/01/17 11:00 97.8 96 21 107/69 (82) 90 2.0 97.8 Physical Exam General: Alert, Oriented X3, Cooperative Heart: Regular rate, Normal S1, Normal S2 Lungs: Clear, Other Abdomen: Normal bowel sounds, Soft Extremities: No clubbing, No cyanosis Skin: No rashes Labs LABS Laboratory Tests Test 03/01/17 04:30 White Blood Count 10.1 x10^3/uL (4.0-11.0) Red Blood Count 4.96 x10^6/uL (4.30-5.70) Hemoglobin 15.3 g/dL (13.0-17.5) Hematocrit 45.4 % (39.0-53.0) Mean Corpuscular Volume 91 fL (79-100) Mean Corpuscular Hemoglobin 31 pg (25-35) Mean Corpuscular Hemoglobin Concent 34 g/dL (31-37) Red Cell Distribution Width 13.7 % (11.5-14.5) Platelet Count 297 x10^3/uL (140-400) Neutrophils (%) (Auto) 68 % (31-73) Lymphocytes (%) (Auto) 20 % (24-48) Monocytes (%) (Auto) 9 % (0-9) Eosinophils (%) (Auto) 3 % (0-3) Basophils (%) (Auto) 1 % (0-3) Neutrophils # (Auto) 6.8 x10^3uL (1.8-7.7) Lymphocytes # (Auto) 2.0 x10^3/uL (1.0-4.8) Monocytes # (Auto) 0.9 x10^3/uL (0.0-1.1) Eosinophils # (Auto) 0.3 x10^3/uL (0.0-0.7) Basophils # (Auto) 0.1 x10^3/uL (0.0-0.2) Sodium Level 139 mmol/L (136-145) Potassium Level 3.8 mmol/L (3.5-5.1) Chloride Level 104 mmol/L (98-107) Carbon Dioxide Level 23 mmol/L (21-32) Anion Gap 12 (6-14) Blood Urea Nitrogen 17 mg/dL (8-26) Creatinine 1.1 mg/dL (0.7-1.3) Estimated GFR (Cockcroft-Gault) 68.8 Glucose Level 87 mg/dL (70-99) Calcium Level 8.9 mg/dL (8.5-10.1) Assessment and Plan Assessmemt and Plan Problems Medical Problems: (1) NSTEMI (non-ST elevated myocardial infarction) Status: Acute Problems: Comment Review of Relevant I have reviewed the following items ila (where applicable) has been applied. Labs Laboratory Tests Test 02/27/17 17:25 02/27/17 23:30 02/28/17 04:35 03/01/17 04:30 Heparin Anti-Xa Act, Unfractionated 0.43 IU/mL (0.30-0.70) 0.40 IU/mL (0.30-0.70) White Blood Count 11.1 x10^3/uL (4.0-11.0) 10.1 x10^3/uL (4.0-11.0) Red Blood Count 4.95 x10^6/uL (4.30-5.70) 4.96 x10^6/uL (4.30-5.70) Hemoglobin 15.0 g/dL (13.0-17.5) 15.3 g/dL (13.0-17.5) Hematocrit 45.3 % (39.0-53.0) 45.4 % (39.0-53.0) Mean Corpuscular Volume 92 fL (79-100) 91 fL (79-100) Mean Corpuscular Hemoglobin 30 pg (25-35) 31 pg (25-35) Mean Corpuscular Hemoglobin Concent 33 g/dL (31-37) 34 g/dL (31-37) Red Cell Distribution Width 13.7 % (11.5-14.5) 13.7 % (11.5-14.5) Platelet Count 320 x10^3/uL (140-400) 297 x10^3/uL (140-400) Neutrophils (%) (Auto) 65 % (31-73) 68 % (31-73) Lymphocytes (%) (Auto) 24 % (24-48) 20 % (24-48) Monocytes (%) (Auto) 8 % (0-9) 9 % (0-9) Eosinophils (%) (Auto) 1 % (0-3) 3 % (0-3) Basophils (%) (Auto) 1 % (0-3) 1 % (0-3) Neutrophils # (Auto) 7.2 x10^3uL (1.8-7.7) 6.8 x10^3uL (1.8-7.7) Lymphocytes # (Auto) 2.7 x10^3/uL (1.0-4.8) 2.0 x10^3/uL (1.0-4.8) Monocytes # (Auto) 0.9 x10^3/uL (0.0-1.1) 0.9 x10^3/uL (0.0-1.1) Eosinophils # (Auto) 0.1 x10^3/uL (0.0-0.7) 0.3 x10^3/uL (0.0-0.7) Basophils # (Auto) 0.1 x10^3/uL (0.0-0.2) 0.1 x10^3/uL (0.0-0.2) Sodium Level 138 mmol/L (136-145) 139 mmol/L (136-145) Potassium Level 3.7 mmol/L (3.5-5.1) 3.8 mmol/L (3.5-5.1) Chloride Level 103 mmol/L (98-107) 104 mmol/L (98-107) Carbon Dioxide Level 24 mmol/L (21-32) 23 mmol/L (21-32) Anion Gap 11 (6-14) 12 (6-14) Blood Urea Nitrogen 10 mg/dL (8-26) 17 mg/dL (8-26) Creatinine 1.0 mg/dL (0.7-1.3) 1.1 mg/dL (0.7-1.3) Estimated GFR (Cockcroft-Gault) 76.7 68.8 Glucose Level 105 mg/dL (70-99) 87 mg/dL (70-99) Calcium Level 9.6 mg/dL (8.5-10.1) 8.9 mg/dL (8.5-10.1) Laboratory Tests Test 03/01/17 04:30 White Blood Count 10.1 x10^3/uL (4.0-11.0) Red Blood Count 4.96 x10^6/uL (4.30-5.70) Hemoglobin 15.3 g/dL (13.0-17.5) Hematocrit 45.4 % (39.0-53.0) Mean Corpuscular Volume 91 fL (79-100) Mean Corpuscular Hemoglobin 31 pg (25-35) Mean Corpuscular Hemoglobin Concent 34 g/dL (31-37) Red Cell Distribution Width 13.7 % (11.5-14.5) Platelet Count 297 x10^3/uL (140-400) Neutrophils (%) (Auto) 68 % (31-73) Lymphocytes (%) (Auto) 20 % (24-48) Monocytes (%) (Auto) 9 % (0-9) Eosinophils (%) (Auto) 3 % (0-3) Basophils (%) (Auto) 1 % (0-3) Neutrophils # (Auto) 6.8 x10^3uL (1.8-7.7) Lymphocytes # (Auto) 2.0 x10^3/uL (1.0-4.8) Monocytes # (Auto) 0.9 x10^3/uL (0.0-1.1) Eosinophils # (Auto) 0.3 x10^3/uL (0.0-0.7) Basophils # (Auto) 0.1 x10^3/uL (0.0-0.2) Sodium Level 139 mmol/L (136-145) Potassium Level 3.8 mmol/L (3.5-5.1) Chloride Level 104 mmol/L (98-107) Carbon Dioxide Level 23 mmol/L (21-32) Anion Gap 12 (6-14) Blood Urea Nitrogen 17 mg/dL (8-26) Creatinine 1.1 mg/dL (0.7-1.3) Estimated GFR (Cockcroft-Gault) 68.8 Glucose Level 87 mg/dL (70-99) Calcium Level 8.9 mg/dL (8.5-10.1) Medications Current Medications Nitroglycerin (Nitrostat) 0.4 mg PRN Q5MIN PRN SL CP RATING > 1/10 Last administered on 02/26/17 23:02; Start 02/26/17 at 22:15; Stop 02/27/17 at 22:14 ; Status DC Fentanyl Citrate (Fentanyl 2ml Vial) 50 mcg PRN Q15MIN PRN IV PAIN GREATER THAN 3/10 Last administered on 02/27/17 03:59; Start 02/26/17 at 22:15; Stop 02/27/17 at 12:17; Status DC Sodium Chloride 1,000 ml @ 100 mls/hr Q10H IV Last administered on 02/26/17 22:57; Start 02/26/17 at 22:15; Stop 02/27/17 at 08:14; Status DC Ondansetron HCl (Zofran) 4 mg 1X ONCE IV ; Start 02/26/17 at 22:15; Stop at 22:16; Status DC Heparin Sodium (Porcine) (Heparin Sodium) 4,000 unit 1X ONCE IV Last administered on 02/26/17 22:55; Start 02/26/17 at 22:30; Stop 02/26/17 at 22:31 ; Status DC Heparin Sodium/ Dextrose 500 ml @ 0 mls/hr CONT PRN IV SEE I/O RECORD Last administered on 02/27/17 19:25; Start 02/26/17 at 22:30; Stop 03/01/17 at 12: 07; Status DC Heparin Sodium (Porcine) (Heparin Sodium) 2,200 unit PRN Q6HRS PRN IV FOR UFH LEVEL LESS THAN 0.2 Last administered on 02/27/17 12:59; Start 02/26/17 at 22: 30; Stop 03/01/17 at 12:07; Status DC Ondansetron HCl (Zofran) 4 mg PRN Q8HRS PRN IV NAUSEA/VOMITING; Start 02/26/17 at 23:45; Stop 02/27/17 at 23:44; Status DC Fentanyl Citrate (Fentanyl 2ml Vial) 50 mcg PRN Q2HR PRN IV PAIN; Start at 23:45; Stop 02/27/17 at 23:44; Status DC Sodium Chloride 1,000 ml @ 100 mls/hr Q10H IV ; Start 02/26/17 at 23:45; Stop 02/26/17 at 23:59; Status DC Acetaminophen (Tylenol) 650 mg PRN Q4HRS PRN PO FEVER Last administered on 02/27 09:38; Start 02/26/17 at 23:45; Stop 02/27/17 at 23:44; Status DC Aspirin (Ecotrin) 81 mg DAILYWBKFT PO Last administered on 03/01/17 07:46; Start 02/27/17 at 08:00 Atorvastatin Calcium (Lipitor) 40 mg QHS PO Last administered on 02/28/17 20: 34; Start 02/27/17 at 07:15 Clopidogrel Bisulfate (Plavix) 300 mg 1X ONCE PO Last administered on 07:44; Start 02/27/17 at 07:15; Stop 02/27/17 at 07:16; Status DC Clopidogrel Bisulfate (Plavix) 75 mg DAILYWBKFT PO Last administered on 07:46; Start 02/28/17 at 08:00 Nitroglycerin/ Dextrose 250 ml @ 0 mls/hr 1X ONCE IV Last administered on 02/27 07:45; Start 02/27/17 at 07:15; Stop 02/27/17 at 07:16; Status DC Cyclobenzaprine HCl (Flexeril) 10 mg PRN TID PRN PO MUSCLE PAIN; Start at 14:30 Non-Formulary Medication 2 puff PRN Q6HRS PRN INH SHORTNESS OF BREATH; Start 02/27/17 at 14:30; Status UNV Non-Formulary Medication 2 puff BID IH ; Start 02/27/17 at 21:00; Status UNV Acetaminophen/ Butalbital/ Caffeine (Fioricet) 1 tab PRN Q4HRS PRN PO MIGRAINE HEADACHE; Start 02/27/17 at 15:00 Non-Formulary Medication 2 inh QID IH ; Start 02/27/17 at 17:00; Status UNV Non-Formulary Medication 2 inh DAILY IH ; Start 02/28/17 at 09:00; Status UNV Nicotine (Nicoderm Cq 21mg) 1 patch PRN DAILY PRN TD Smoking Cessation; Start 02/27/17 at 15:00 Acetaminophen (Tylenol) 650 mg PRN Q6HRS PRN PO FEVER Last administered on 03:43; Start 02/27/17 at 14:30 Ondansetron HCl (Zofran) 4 mg PRN Q6HRS PRN IV NAUSEA/VOMITING; Start 02/27/17 at 14:30 Morphine Sulfate 2 mg PRN Q2HR PRN IV PAIN; Start 02/27/17 at 14:30 Tramadol HCl (Ultram) 50 mg PRN Q6HRS PRN PO PAIN Last administered on 02:46; Start 02/27/17 at 14:30 Hydralazine HCl (Apresoline) 10 mg PRN Q4HRS PRN IVP ELEVATED BP, SEE COMMENTS ; Start 02/27/17 at 14:30 Docusate Sodium (Colace) 100 mg PRN DAILY PRN PO CONSTIPATION; Start 02/27/17 at 14:30 Albuterol Sulfate (Ventolin Neb Soln) 2.5 mg PRN Q6HRS PRN NEB SHORTNESS OF BREATH; Start 02/27/17 at 15:00; Stop 02/28/17 at 15:03; Status DC Albuterol/ Ipratropium (Duoneb) 3 ml RTQID NEB Last administered on 03/01/17 14:52; Start 02/27/17 at 16:00 Budesonide (Pulmicort) 0.5 mg RTBID NEB Last administered on 03/01/17 07:01; Start 02/27/17 at 20:00 Guaifenesin/ Codeine Phosphate (Robitussin Ac) 5 ml PRN Q6HRS PRN PO COUGH Last administered on 02/28/17 19:24; Start 02/27/17 at 17:00 Info (Anti-Coagulation Monitoring By Pharmacy) 1 each PRN DAILY PRN MC SEE COMMENTS Last administered on 03/01/17 09:23; Start 02/28/17 at 08:45; Stop 03/01/17 at 12:07; Status DC Heparin Sodium/ Sodium Chloride 1,000 ml @ As Directed STK-MED ONCE .ROUTE ; Start 02/28/17 at 11:19; Stop 02/28/17 at 11:20; Status DC Lidocaine HCl 20 ml STK-MED ONCE .ROUTE ; Start 02/28/17 at 11:20; Stop at 11:21; Status DC Midazolam HCl (Versed) 2 mg STK-MED ONCE .ROUTE ; Start 02/28/17 at 11:21; Stop 02/28/17 at 11:22; Status DC Fentanyl Citrate (Fentanyl 2ml Vial) 100 mcg STK-MED ONCE .ROUTE ; Start at 11:21; Stop 02/28/17 at 11:22; Status DC Heparin Sodium/ Sodium Chloride 1,000 unit 1X ONCE IART Last administered on 02/28/17 11:50; Start 02/28/17 at 11:45; Stop 02/28/17 at 11:46; Status DC Midazolam HCl (Versed) 2 mg 1X ONCE IV Last administered on 02/28/17 11:51; Start 02/28/17 at 11:45; Stop 02/28/17 at 11:46; Status DC Fentanyl Citrate (Fentanyl 2ml Vial) 100 mcg 1X ONCE IV Last administered on 02/28/17 11:51; Start 02/28/17 at 11:45; Stop 02/28/17 at 11:46; Status DC Iohexol (Omnipaque 300 Mg/ml) 100 ml 1X ONCE IART Last administered on 12:23; Start 02/28/17 at 11:45; Stop 02/28/17 at 11:46; Status DC Lidocaine HCl 20 ml 1X ONCE IJ Last administered on 02/28/17 11:50; Start at 11:45; Stop 02/28/17 at 11:46; Status DC Heparin Sodium (Porcine) (Heparin Sodium) 5,000 unit 1X ONCE IV Last administered on 02/28/17 12:23; Start 02/28/17 at 12:15; Stop 02/28/17 at 12:16 ; Status DC Heparin Sodium (Porcine) (Heparin Sodium) 10,000 unit STK-MED ONCE .ROUTE ; Start 02/28/17 at 12:01; Stop 02/28/17 at 12:04; Status DC Albuterol Sulfate (Ventolin Neb Soln) 2.5 mg PRN Q2HR PRN NEB SHORTNESS OF BREATH; Start 02/28/17 at 15:15 Heparin Sodium (Porcine) (Heparin Sq) 5,000 unit Q8HRS SQ Last administered on 03/01/17 14:13; Start 03/01/17 at 14:00 Prednisone (Prednisone) 40 mg DAILY PO Last administered on 03/01/17 14:09; Start 03/01/17 at 13:00 Active Scripts Active Fioricet 50-300-40 Mg Capsule (Butalb/Acetaminophen/Caffeine) 1 Each Capsule 1 Each PO PRN Q4HRS PRN Cyclobenzaprine Hcl 10 Mg Tablet 1 Tab PO TID PRN [Nicotine] 1 PATCH Patch 1 Patch TD DAILY Levaquin (Levofloxacin) 750 Mg Tablet 1 Tab PO DAILY 7 Days Reported Proair Hfa Inhaler (Albuterol Sulfate) 8.5 Gm Hfa.aer.ad 2 Puff INH PRN Q6HRS PRN Symbicort 160-4.5 Mcg Inhaler (Budesonide/Formoterol Fumarate) 10.2 Gm Hfa.aer.ad 2 Puff IH BID Lipitor (Atorvastatin Calcium) 10 Mg Tablet 10 Mg PO HS Tylenol Extra Strength (Acetaminophen) 500 Mg Tablet 1,000 Mg PO PRN Q6HRS PRN Combivent Respimat Inhal (Ipratropium/Albuterol Sulfate) 4 Gm Aer.w.adap 2 Inh IH QID Spiriva (Tiotropium Rain[place]) 18 Mcg Cap.w.dev 2 Inh IH DAILY Aspirin 325 Mg Tablet 325 Mg PO DAILY Vitals/I & O Vital Sign - Last 24 Hours 02/28/17 02/28/17 02/28/17 02/28/17 15:00 15:30 16:30 16:56 Pulse 81 81 81 Pulse Ox 94 93 93 92 O2 Delivery Room Air Room Air Room Air Room Air 02/28/17 02/28/17 02/28/17 02/28/17 18:50 19:50 20:00 20:15 Temp 98.5 98.5 Pulse 81 111 Resp 22 B/P (MAP) 131/80 (97) Pulse Ox 95 91 88 O2 Delivery Room Air Room Air Nasal Cannula Room Air O2 Flow Rate 2.0 02/28/17 02/28/17 03/01/17 03/01/17 20:16 23:25 02:46 03:35 Temp 98.4 98.1 98.4 98.1 Pulse 93 96 Resp 20 18 B/P (MAP) 116/76 (89) 111/74 (86) Pulse Ox 88 94 94 93 O2 Delivery Room Air Nasal Cannula Nasal Cannula Nasal Cannula O2 Flow Rate 2.0 2.0 2.0 03/01/17 03/01/17 03/01/17 03/01/17 03:46 07:00 07:01 08:20 Temp 97.7 97.7 Pulse 86 Resp 20 B/P (MAP) 109/71 (84) Pulse Ox 94 90 90 O2 Delivery Nasal Cannula Nasal Cannula Room Air Nasal Cannula O2 Flow Rate 2.0 2.0 2.0 03/01/17 03/01/17 03/01/17 10:59 11:00 14:53 Temp 97.8 97.8 Pulse 96 Resp 21 B/P (MAP) 107/69 (82) Pulse Ox 90 O2 Delivery Room Air Nasal Cannula Room Air O2 Flow Rate 2.0 CYNDIE ORDAZ MD Mar 01, 2017 14:58
[2017-03-01 15:00] VITALS: BP 111/70
--- NOTE | 2017-03-01 15:22 | PDOC ---
PULMONARY PROGRESS NOTES Vitals Vital Signs Date Time Temp Pulse Resp B/P (MAP) Pulse Ox O2 Delivery O2 Flow Rate FiO2 03/01/17 14:53 Room Air 03/01/17 11:00 97.8 96 21 107/69 (82) 90 2.0 97.8 General: Alert, No acute distress Lungs: Clear, Other Cardiovascular: S1 Abdomen: Soft Extremities: No Edema Labs Laboratory Tests Test 02/27/17 17:25 02/27/17 23:30 02/28/17 04:35 03/01/17 04:30 Heparin Anti-Xa Act, Unfractionated 0.43 IU/mL (0.30-0.70) 0.40 IU/mL (0.30-0.70) White Blood Count 11.1 x10^3/uL (4.0-11.0) 10.1 x10^3/uL (4.0-11.0) Red Blood Count 4.95 x10^6/uL (4.30-5.70) 4.96 x10^6/uL (4.30-5.70) Hemoglobin 15.0 g/dL (13.0-17.5) 15.3 g/dL (13.0-17.5) Hematocrit 45.3 % (39.0-53.0) 45.4 % (39.0-53.0) Mean Corpuscular Volume 92 fL (79-100) 91 fL (79-100) Mean Corpuscular Hemoglobin 30 pg (25-35) 31 pg (25-35) Mean Corpuscular Hemoglobin Concent 33 g/dL (31-37) 34 g/dL (31-37) Red Cell Distribution Width 13.7 % (11.5-14.5) 13.7 % (11.5-14.5) Platelet Count 320 x10^3/uL (140-400) 297 x10^3/uL (140-400) Neutrophils (%) (Auto) 65 % (31-73) 68 % (31-73) Lymphocytes (%) (Auto) 24 % (24-48) 20 % (24-48) Monocytes (%) (Auto) 8 % (0-9) 9 % (0-9) Eosinophils (%) (Auto) 1 % (0-3) 3 % (0-3) Basophils (%) (Auto) 1 % (0-3) 1 % (0-3) Neutrophils # (Auto) 7.2 x10^3uL (1.8-7.7) 6.8 x10^3uL (1.8-7.7) Lymphocytes # (Auto) 2.7 x10^3/uL (1.0-4.8) 2.0 x10^3/uL (1.0-4.8) Monocytes # (Auto) 0.9 x10^3/uL (0.0-1.1) 0.9 x10^3/uL (0.0-1.1) Eosinophils # (Auto) 0.1 x10^3/uL (0.0-0.7) 0.3 x10^3/uL (0.0-0.7) Basophils # (Auto) 0.1 x10^3/uL (0.0-0.2) 0.1 x10^3/uL (0.0-0.2) Sodium Level 138 mmol/L (136-145) 139 mmol/L (136-145) Potassium Level 3.7 mmol/L (3.5-5.1) 3.8 mmol/L (3.5-5.1) Chloride Level 103 mmol/L (98-107) 104 mmol/L (98-107) Carbon Dioxide Level 24 mmol/L (21-32) 23 mmol/L (21-32) Anion Gap 11 (6-14) 12 (6-14) Blood Urea Nitrogen 10 mg/dL (8-26) 17 mg/dL (8-26) Creatinine 1.0 mg/dL (0.7-1.3) 1.1 mg/dL (0.7-1.3) Estimated GFR (Cockcroft-Gault) 76.7 68.8 Glucose Level 105 mg/dL (70-99) 87 mg/dL (70-99) Calcium Level 9.6 mg/dL (8.5-10.1) 8.9 mg/dL (8.5-10.1) Laboratory Tests Test 03/01/17 04:30 White Blood Count 10.1 x10^3/uL (4.0-11.0) Red Blood Count 4.96 x10^6/uL (4.30-5.70) Hemoglobin 15.3 g/dL (13.0-17.5) Hematocrit 45.4 % (39.0-53.0) Mean Corpuscular Volume 91 fL (79-100) Mean Corpuscular Hemoglobin 31 pg (25-35) Mean Corpuscular Hemoglobin Concent 34 g/dL (31-37) Red Cell Distribution Width 13.7 % (11.5-14.5) Platelet Count 297 x10^3/uL (140-400) Neutrophils (%) (Auto) 68 % (31-73) Lymphocytes (%) (Auto) 20 % (24-48) Monocytes (%) (Auto) 9 % (0-9) Eosinophils (%) (Auto) 3 % (0-3) Basophils (%) (Auto) 1 % (0-3) Neutrophils # (Auto) 6.8 x10^3uL (1.8-7.7) Lymphocytes # (Auto) 2.0 x10^3/uL (1.0-4.8) Monocytes # (Auto) 0.9 x10^3/uL (0.0-1.1) Eosinophils # (Auto) 0.3 x10^3/uL (0.0-0.7) Basophils # (Auto) 0.1 x10^3/uL (0.0-0.2) Sodium Level 139 mmol/L (136-145) Potassium Level 3.8 mmol/L (3.5-5.1) Chloride Level 104 mmol/L (98-107) Carbon Dioxide Level 23 mmol/L (21-32) Anion Gap 12 (6-14) Blood Urea Nitrogen 17 mg/dL (8-26) Creatinine 1.1 mg/dL (0.7-1.3) Estimated GFR (Cockcroft-Gault) 68.8 Glucose Level 87 mg/dL (70-99) Calcium Level 8.9 mg/dL (8.5-10.1) Medications Active Scripts Medications Dose Route/Sig Max Daily Dose Days Date Category Proair Hfa Inhaler (Albuterol Sulfate) 8.5 Gm Hfa.aer.ad 2 Puff INH PRN Q6HRS PRN 02/27/17 Reported Symbicort 160-4.5 Mcg Inhaler (Budesonide/Formoterol Fumarate) 10.2 Gm Hfa.aer.ad 2 Puff IH BID 02/27/17 Reported Lipitor (Atorvastatin Calcium) 10 Mg Tablet 10 Mg PO HS 02/27/17 Reported Fioricet 50-300-40 Mg Capsule (Butalb/Acetaminophen/Caffeine) 1 Each Capsule 1 Each PO PRN Q4HRS PRN 12/30/15 Rx Cyclobenzaprine Hcl 10 Mg Tablet 1 Tab PO TID PRN 12/30/15 Rx [Nicotine] 1 PATCH Patch 1 Patch TD DAILY 02/26/15 Rx Levaquin (Levofloxacin) 750 Mg Tablet 1 Tab PO DAILY 7 02/26/15 Rx Tylenol Extra Strength (Acetaminophen) 500 Mg Tablet 1,000 Mg PO PRN Q6HRS PRN 02/22/15 Reported Combivent Respimat Inhal (Ipratropium/Albuterol Sulfate) 4 Gm Aer.w.adap 2 Inh IH QID 02/22/15 Reported Spiriva (Tiotropium Rankin) 18 Mcg Cap.w.dev 2 Inh IH DAILY 02/22/15 Reported Aspirin 325 Mg Tablet 325 Mg PO DAILY 02/22/15 Reported Impression . FULL NOTE DICTATED OK TO D/C FOLLOW UP WITH DR NOONAN NO NEED FOR 02 ORIANA VARGHESE MD Mar 01, 2017 15:22
--- NOTE | 2017-03-01 16:43 | PDOC ---
UBALDO [employer] 03/01/17 1643: CARDIO Progress Notes Date and Time Date of Service 03/01/2017 Time of Evaluation 1620 Subjective Subjective: No Chest Pain, No shortness of breath, No Palpitations Vitals Vitals Vital Signs Date Time Temp Pulse Resp B/P (MAP) Pulse Ox O2 Delivery O2 Flow Rate FiO2 03/01/17 15:00 98.0 94 20 111/70 (84) 91 Nasal Cannula 2.0 98.0 Weight Weight [ ] Laboratory Labs Laboratory Tests Test 03/01/17 04:30 White Blood Count 10.1 x10^3/uL (4.0-11.0) Red Blood Count 4.96 x10^6/uL (4.30-5.70) Hemoglobin 15.3 g/dL (13.0-17.5) Hematocrit 45.4 % (39.0-53.0) Mean Corpuscular Volume 91 fL (79-100) Mean Corpuscular Hemoglobin 31 pg (25-35) Mean Corpuscular Hemoglobin Concent 34 g/dL (31-37) Red Cell Distribution Width 13.7 % (11.5-14.5) Platelet Count 297 x10^3/uL (140-400) Neutrophils (%) (Auto) 68 % (31-73) Lymphocytes (%) (Auto) 20 % (24-48) Monocytes (%) (Auto) 9 % (0-9) Eosinophils (%) (Auto) 3 % (0-3) Basophils (%) (Auto) 1 % (0-3) Neutrophils # (Auto) 6.8 x10^3uL (1.8-7.7) Lymphocytes # (Auto) 2.0 x10^3/uL (1.0-4.8) Monocytes # (Auto) 0.9 x10^3/uL (0.0-1.1) Eosinophils # (Auto) 0.3 x10^3/uL (0.0-0.7) Basophils # (Auto) 0.1 x10^3/uL (0.0-0.2) Sodium Level 139 mmol/L (136-145) Potassium Level 3.8 mmol/L (3.5-5.1) Chloride Level 104 mmol/L (98-107) Carbon Dioxide Level 23 mmol/L (21-32) Anion Gap 12 (6-14) Blood Urea Nitrogen 17 mg/dL (8-26) Creatinine 1.1 mg/dL (0.7-1.3) Estimated GFR (Cockcroft-Gault) 68.8 Glucose Level 87 mg/dL (70-99) Calcium Level 8.9 mg/dL (8.5-10.1) Physical Exam HEENT: Neck Supple W Full Motion Chest: Symmetric LUNGS: Clear to Auscultation Heart: S1S2, RRR (SR) Abdomen: Soft N/T Extremities: No Calf Tenderness Neurology: alert, oriented, follow commands Other Exams right groin arteriotomy site intact, neurovascular status to bilateral LE intact. Assessment Assessment 1. NSTEMI: post LHC with diffuse disease, no culprit vessel. 2. COPD/Dyspnea: possible pulmonary issue, pulmonary consult. Recommendations 1. Aggressive cardiac medical therapy 2. If ok with pulmonary then may DC to home with secondary prevention measures. 3. Smoking cessation 4. Discussed med adherence. 5. DAPT. Start on toprol XL. BP at low end. Will reeval as an outpt for ACEi. Continue on statin. 6. Follow up in office in 3-4 weeks. LUCIO CHEN MD 03/01/17 1700: CARDIO Progress Notes Plan Plan Patient seen and examined. Agree with above nurse practitioner note. Review Dr. coronado's note. Okay to discharge from a cardiac standpoint. UBALDO ART APRN Mar 01, 2017 16:43 LUCIO CHEN MD Mar 01, 2017 17:00
[2017-03-01 17:00] VITALS: BP 111/70
[2017-03-01] MEDS ORDERED: METOPROLOL SUCC 24HR ER 25 MG TAB.ER.24H. PO SCH (17:00)
--- NOTE | 2017-03-01 17:16 | PDOC3 ---
Discharge Summary [facility] Date of Admission: Feb 26, 2017 Discharge Date: Mar 01, 2017 Admitting Diagnosis NSTEMI s/p Cath wo PCI h/o CAD post CABG COPD acute hypoxic resp failure with copd TOBAccoism HLD Problems: Final Diagnosis CONSULTS card pulm Brief Hospital Course Patient is a 56 year old male who presents with complaint of chest pain yesterday. pt got CABG x5 2006. he was doing ok till yesterday, when he was sitting, he felt substernal chest pain, heavy, 9/10, with N/V, sob, no diaphoresis, radiating to left shoulder. ER Troponin high. denies fever, chills, cough, diarrhea. still smoking, compliant with meds. requries both heparin and nitro drip overnight, now still chest pain 12/30. Cath done, no PCI done. PT cont having cough, sob, need NC2 L. HOWEVER, passed 6mi walk. pulm consulted, agreed to dc dc home with toprlol dc time 35min General: Alert, Oriented X3, Cooperative Heart: Regular rate, Normal S1, Normal S2 Lungs: Clear, Other Abdomen: Normal bowel sounds, Soft Extremities: No clubbing, No cyanosis Skin: No rashes Patient History: FH: congestive heart failure 33 FATHER 32 MOTHER FH: diabetes mellitus 32 MOTHER FH: heart disease 33 FATHER FHx: hypercholesterolemia 33 FATHER 32 MOTHER FHx: hypertension 33 FATHER Heart valve stenosis 33 FATHER Lymphoma G8 SISTER Problems: Disposition home CONDITION AT DISCHARGE: Improved Diet cardiac Scheduled Aspirin (Aspirin), 325 MG PO DAILY, (Reported) Atorvastatin Calcium (Lipitor), 10 MG PO HS, (Reported) Budesonide/Formoterol Fumarate (Symbicort 160-4.5 Mcg Inhaler), 2 PUFF IH BID, ( Reported) Ipratropium/Albuterol Sulfate (Combivent Respimat Inhal), 2 INH IH QID, ( Reported) Levofloxacin (Levaquin), 1 TAB PO DAILY Tiotropium [place] (Spiriva), 2 INH IH DAILY, (Reported) [Nicotine], 1 PATCH TD DAILY Scheduled PRN Acetaminophen (Tylenol Extra Strength), 1,000 MG PO PRN Q6HRS PRN for PAIN, ( Reported) Albuterol Sulfate (Proair Hfa Inhaler), 2 PUFF INH PRN Q6HRS PRN for SHORTNESS OF BREATH, (Reported) Butalb/Acetaminophen/Caffeine (Fioricet 50-300-40 Mg Capsule), 1 EACH PO PRN Q4HRS PRN for MIGRAINE HEADACHE Cyclobenzaprine Hcl (Cyclobenzaprine Hcl), 1 TAB PO TID PRN for MUSCLE PAIN Follow Up card in 2 weeks CYNDIE ORDAZ MD Mar 01, 2017 17:16
--- NOTE | 2017-03-01 19:59 | CONS ---
DATE OF CONSULTATION: 03/01/2017 ATTENDING PHYSICIAN: Dr. Shine. REASON FOR CONSULTATION: The patient seen in pulmonary consultation at the request of for Dr. Arreola for hypoxemia. HISTORY OF PRESENT ILLNESS: The patient is a 56-year-old with history of chronic obstructive pulmonary disease that he is normally on Symbicort and Spiriva, p.r.n. ProAir, continues to smoke, presented with a non-ST segment elevation myocardial infarction. He was due to be discharged; he was noted to be hypoxic. I was asked to see him in consultation. He continues to smoke, has a cough, mostly nonproductive. Denies fever, chills or night sweats. PAST MEDICAL HISTORY: 1. Chronic obstructive pulmonary disease. 2. Previous adenoma. CT of the chest revealing infiltrates and 3 mm nodule. He normally follows up with Dr. Perez in the office. 3. Tobacco dependence. 4. Coronary artery disease with previous coronary artery bypass grafting. 5. Hypertension. PAST SURGICAL HISTORY: Status post coronary artery bypass grafting. ALLERGIES: No known drug allergies. SOCIAL HISTORY: He continues to smoke on and off. 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 Denies any alcohol or illicit drugs. FAMILY HISTORY: No family history of lung disorders. CURRENT MEDICATIONS: List was reviewed. REVIEW OF SYSTEMS: As indicated above, otherwise a 10-point system was reviewed and negative. PHYSICAL EXAMINATION: GENERAL: The patient was in no respiratory distress. VITAL SIGNS: Stable. O2 saturation currently greater than 92% on 2 liters. HEENT: Eyes, the sclerae were nonicteric. NECK: Jugular venous distention was not elevated. No lymphadenopathy. CHEST: Full expansion. LUNGS: Adequate airway flow, no wheezes. CARDIOVASCULAR: Regular rate and rhythm with S1, S2, no S3. ABDOMEN: Soft, nontender, nondistended. EXTREMITIES: No clubbing, cyanosis or edema. NEUROLOGIC: The patient was awake, alert, following commands. A detailed neuro exam was not performed. LABORATORY DATA: Labs were reviewed. Chest x-ray was reviewed. White count was normal. Hemoglobin and hematocrit normal. Electrolytes were normal. Chest x-ray revealed no acute cardiopulmonary process. Cardiac catheterization revealed severe nulato 3-vessel coronary artery disease, 4/5 grafts being patent. IMPRESSION: 1. Non-ST segment elevation myocardial infarction. 2. Coronary artery disease status post coronary artery bypass grafting. 3. Chronic obstructive pulmonary disease with acute exacerbation. 4. Abnormal CT of the chest revealing a 3 mm nodule. The patient is to follow up in the office with Dr. Perez. PLAN: 1. The patient underwent a 6-minute walk. He does not require oxygen supplementation, could be discharged home to follow up in the office. 2. The patient instructed on the importance of discontinuing tobacco products. 3. Continue current bronchodilators. ORIANA VARGHESE MD DR: JOB/augustin JOB#: [id number] / [id number]
== END 2017-03-01 17:58 | disposition home or self-care (01) | DRG 280 ==
LOC: ER 21:53 → 2 SOUTH 22:28
PROVIDERS: ADMIT Internal Medicine; ATTEND Internal Medicine
PROC: B2111ZZ Fluoroscopy of Multiple Coronary Arteries using Low Osmolar Contrast (ICD-10-PCS; principal; 2017-03-01)
PROC: 4A023N7 Measurement of Cardiac Sampling and Pressure, Left Heart, Percutaneous Approach (ICD-10-PCS; 2017-03-01)
PROC: B2131ZZ Fluoroscopy of Multiple Coronary Artery Bypass Grafts using Low Osmolar Contrast (ICD-10-PCS; 2017-03-01)
DX: I21.4 Non-ST elevation (NSTEMI) myocardial infarction (principal); J96.01 Acute respiratory failure with hypoxia; J44.1 Chronic obstructive pulmonary disease with (acute) exacerbation; E78.5 Hyperlipidemia, unspecified; F17.210 Nicotine dependence, cigarettes, uncomplicated; I25.10 Atherosclerotic heart disease of native coronary artery without angina pectoris; Z82.49 Family history of ischemic heart disease and other diseases of the circulatory system; Z95.1 Presence of aortocoronary bypass graft; Z83.3 Family history of diabetes mellitus; Z84.89 Family history of other specified conditions; Z80.9 Family history of malignant neoplasm, unspecified
CPT/HCPCS: 36415; 37252; 71010; 80048; 80053; 80061; 82553; 83735; 83880; 84484; 85025; 85520; 93005; 93308; 93455; 93571; 94250; 94620; 94640; 94760; 96374; 99152; 99153; C1753; C1769; C1771; C1887; C1892; G0269; J1644; J2250; J3010; J3490; J7030; J7512; J7620; J7626; Q9967; 99291-25; J2001

== ENCOUNTER → 2017-03-11 | Outpatient (CLI) | payer BC ==
[2017-03-01 17:00] VITALS: BP 111/70
[~2017-03-11] MED LIST changes: +ATOR10TA PO; +BUDE10.2 IH; +PROAIR HFA8.5 GM INH
--- NOTE | 2017-03-11 12:00 | RAD ---
Indication follow-up lung nodules. Noncontrast imaging through the chest was performed and is compared to an examination 11 months earlier. Imaging through the upper abdomen is unremarkable coronary artery calcification is noted. There are a few mediastinal lymph nodes. These are likely incidental. The appearance unchanged compared to the previous exam there are moderately advanced underlying emphysematous changes similar to the previous exam. A dominant parenchymal mass in either lung is not seen. Small mass seen previously in the right lower lobe is stable (image 181 series 3) measuring approximately 2 to 3 mm. And additional 2 mm nodule is seen in the right upper lobe, peripherally, image 169 also stable An acute parenchymal infiltrate in either lung is not seen. IMPRESSION: No acute finding in the chest. Underlying emphysematous changes. Mild mediastinal adenopathy, stable. Stable small pulmonary nodules in the the right lung PQRS Compliance Statement: One or more of the following individualized dose reduction techniques were utilized for this examination: 1. Automated exposure control 2. Adjustment of the mA and/or kV according to patient size 3. Use of iterative reconstruction technique
== END | disposition home or self-care (01) ==
LOC: CT 09:04
PROVIDERS: ATTEND Internal Medicine Critical Care Medicine
DX: J43.9 Emphysema, unspecified (principal); R59.0 Localized enlarged lymph nodes; R91.8 Other nonspecific abnormal finding of lung field
CPT/HCPCS: 71250

== ENCOUNTER → 2018-06-13 | Outpatient (CLI) | payer OTHER ==
[~2018-06-13] MED LIST changes: +ALBU2.5V8 INH; +ALBUTEROL SULFATE 2.5 MG/3 ML NEBU. NEB ONE; -PROAIR HFA8.5 GM INH
--- NOTE | 2018-06-13 14:26 | RAD ---
LUMBAR SPINE 2-3V History: LOW BACK PAIN Comparison: None. Findings: 3 views of the lumbar spine are submitted. Lumbar vertebral body stature is overall maintained. There is [id number] degenerative disc disease greater posteriorly L5-S1, mild spondylosis. There is negligible posterior subluxation L2 relative L3, mild degenerative disc disease and spondylosis at L2-3. There is multilevel lumbar facet degenerative change. There is atherosclerotic calcification of the abdominal aorta. Impression: 1. There is mild to moderate degenerative disc disease L5-S1, minimally at L2-3. There is negligible posterior subluxation L2 relative L3. There is multilevel lumbar facet degenerative change. There is multilevel mild spondylosis. Electronically signed by: Marcelo Boss MD (06/13/2018 2:22 PM) [id number]
--- NOTE | 2018-06-13 14:46 | RAD ---
CHEST PA LATERAL CLINICAL INDICATION: COPD, INCLUDE CARDIOTHORACIC RATIO. COMPARISON: 02/26/2017 FINDINGS: CABG changes noted. Cardiac to thoracic ratio of 0.51. Heart is normal in size. Diffuse prominence of interstitium is seen without focal consolidation. No pneumothorax or pleural effusion. Visualized bony thorax is within normal limits. Emphysema. IMPRESSION: 1. Mild diffuse prominence of interstitium may be secondary to chronic interstitial changes, atypical/viral infection or interstitial primary edema. 2. Emphysema. Electronically signed by: Torin Modi DO (06/13/2018 2:42 PM) [id number]
== END | disposition home or self-care (01) ==
LOC: PF 08:16
PROVIDERS: ATTEND Surgery
DX: J44.9 Chronic obstructive pulmonary disease, unspecified (principal); M51.37 Other intervertebral disc degeneration, lumbosacral region; M47.896 Other spondylosis, lumbar region; I70.0 Atherosclerosis of aorta
CPT/HCPCS: 71046; 72100; 94060; 94640; J7613